=== PATIENT | female | born 1995 | race Asian ===

== ENCOUNTER 2019-05-01 11:30 | Outpatient (REF) | payer OTHER, SELFPAY ==
[2019-05-01 20:00] LABS: HCG Quant, Pregnancy 11783 mIU/mL (1-3)
== END 2019-05-01 11:50 ==
LOC: NCHCN 11:30
PROVIDERS: PCP Nurse Practitioner Family; Visit Provider Nurse Practitioner
DX: Z33.1 Pregnant state, incidental (principal)
CPT/HCPCS: 84702

== ENCOUNTER 2019-05-08 14:33 | Outpatient (CLI) | payer OTHER, SELFPAY | END 2019-05-08 14:53 | PROVIDERS: PCP Nurse Practitioner Family; Visit Provider Advanced Practice Midwife | DX: Z34.91 Encounter for supervision of normal pregnancy, unspecified, first trimester (principal); Z01.84 Encounter for antibody response examination | CPT/HCPCS: 36415; 86850; 86900; 86901; 84702 ==

== ENCOUNTER 2019-05-31 15:44 | Outpatient (CLI) | payer OTHER, SELFPAY ==
[2019-05-31 17:05] LABS: Abs Immature Grans 0.02 k/cumm (0.0-0.09); Absolute Basophil Count 0.02 k/cumm (0.0-0.2); Absolute Eosinophil Count 0.11 k/cumm (0.0-0.7); Absolute Lymphocyte Count 2.47 k/cumm (1.2-3.4); Absolute Monocyte Count 0.81 k/cumm (0.11-0.7); Basophils % 0.2; Eosinophils % 1.1; HCT 36.5 % (36.0-46.0); HGB 11.5 g/dL (12.0-15.5); Immature Grans % 0.2; Lymphocytes % 24.9; Mean Corp. HGB Concentration 31.5 g/dL (32.0-36.0); Mean Corpuscular Hemoglobin 25.4 pg (27.0-33.0); Mean Corpuscular Volume 80.8 fL (80-95); Monocytes % 8.2; Neutrophils % 65.4; Platelet Count 225 x1000/uL (130-400); RBC 4.52 m/cumm (4.00-5.20); White Blood Cell Count 9.93 k/cumm (4.4-10.8)
[2019-05-31 18:12] LABS: Diff Comment PLT Morph Reviewed; RBC Morphology Normal
[2019-06-04 08:17] LABS: HIV-1/2 Ag & Ab Screen Negative (Negative)
[2019-06-04 08:18] LABS: Hepatitis B Surface Ag Negative (Negative); Hepatitis C Ab w Rflx HCV PCR Negative (Negative); Rubella IgG Ab (UVM) Positive (See Note); Varicella IgG Antibody Positive (See Note)
[2019-06-04 10:06] LABS: Syphilis Total Ab w/Reflex Nonreactive (Nonreactive)
== END 2019-05-31 16:04 ==
PROVIDERS: PCP Nurse Practitioner Family; Visit Provider Advanced Practice Midwife
DX: Z34.91 Encounter for supervision of normal pregnancy, unspecified, first trimester (principal); Z11.59 Encounter for screening for other viral diseases; Z01.84 Encounter for antibody response examination; Z11.4 Encounter for screening for human immunodeficiency virus [HIV]
CPT/HCPCS: 36415; 86787; 86803; 86850; 86900; 86901; 87340; 87389; 87491; 87591; 85025; 86762; 86780

== ENCOUNTER 2019-05-31 16:25 | Outpatient (REF) | payer OTHER, MEDICAID, SELFPAY ==
--- NOTE | 2019-05-31 15:15 | PAPFT_PTH ---
PATIENT: Hoa Cox LOC: [facility] U#:[id number] AGE/SX: 24/F ROOM: RE05/31/[address]: Molly Bliss : 1995 BED: DIS: 05/31/2019 SPEC #: [id number] RECD: 05/31/19 17:24 STATUS: KAMI RESamuel #: [id number] JASPER: 05/31/19 15:[address]: Molly Bliss DEPT: [facility] Cytology RECD BY: Aixa Martin ENTERED: 05/31/19 17:25 SP TYPE: PAPFT OTHR DR: Maile Medel Tissues: 1 - CX/ENDOCX FOR PAP SMEARS Procedures: PAP THIN PREP/UVM Screening Comments: [id number]
[2019-05-31 19:14] LABS: *AMPHETAMINES SCREEN URINE Negative (Negative); *BARBITURATES SCREEN URINE Negative (Negative); *BENZODIAZEPINES SCREEN URINE Negative (Negative); Cannabinoids THC Negative (Negative); Cocaine Screen,Urine Negative (Negative); METHADONE URINE SCREEN Negative (Negative); OPIATES URINE SCREEN Negative (Negative)
[2019-05-31 19:25] LABS: Tricyclic Antidepressants Negative (Negative)
[2019-06-04 08:19] LABS: Chlamydia Result Negative (Negative); GC Result Negative (Negative)
[2019-06-04 08:29] LABS: Specimen Description Cervix
[2019-06-07 09:59] LABS: Buprenorphine Negative
== END 2019-05-31 16:45 ==
LOC: LBN 16:25
PROVIDERS: PCP Nurse Practitioner Family; Visit Provider Advanced Practice Midwife
DX: Z34.91 Encounter for supervision of normal pregnancy, unspecified, first trimester (principal); N89.8 Other specified noninflammatory disorders of vagina; Z12.4 Encounter for screening for malignant neoplasm of cervix; Z11.3 Encounter for screening for infections with a predominantly sexual mode of transmission
CPT/HCPCS: 80307; 87491; 87591; 88142; 87086; 87480; 87510; 87660

== ENCOUNTER 2019-07-26 02:46 | Outpatient (CLI) | payer OTHER, SELFPAY ==
--- NOTE | 2019-07-26 10:05 | DI.US_ITS ---
EXAM: US OB 2-3 TRIMESTER CLINICAL HISTORY: routine pnc, Z34.90 TECHNIQUE: Ultrasound performed using standard protocol. COMPARISON: No exams were available for comparison FINDINGS: Ob ultrasound was performed utilizing 2nd trimester protocol. There is a single fetus with bio metry consistent with gestational age 18 weeks 1 day and an EDC of 12/26/2019. Placenta is posterior with no evidence of placenta previa. There is visually a normal quantity of amniotic fluid. anomaly screen is within normal limits as per the attached checklist. cardiac activity observe d at a rate of 136 BPM.
== END 2019-07-26 03:06 ==
PROVIDERS: PCP Nurse Practitioner Family; Visit Provider Advanced Practice Midwife
DX: Z34.92 Encounter for supervision of normal pregnancy, unspecified, second trimester (principal); Z3A.18 18 weeks gestation of pregnancy
CPT/HCPCS: 76805

== ENCOUNTER 2019-10-04 08:02 | Outpatient (CLI) | payer OTHER, MEDICAID, SELFPAY ==
[2019-10-04 08:56] LABS: Glucose,1 Hr (Glucola) 154 mg/dL (80-140)
[2019-10-04 09:09] LABS: HCT 38.4 % (36.0-46.0); HGB 12.5 g/dL (12.0-15.5); Mean Corp. HGB Concentration 32.6 g/dL (32.0-36.0); Mean Corpuscular Hemoglobin 29.8 pg (27.0-33.0); Mean Corpuscular Volume 91.4 fL (80-95); Mean Platelet Volume 10.6 fL (8.0-11.0); Platelet Count 265 x1000/uL (130-400); RBC Distribution Width 13.6 % (11.7-14.6); White Blood Cell Count 12.48 k/cumm (4.4-10.8)
[2019-10-04 10:13] LABS: ALT 13 U/L (14-59); AST 12 U/L (15-37); Alkaline Phosphatase 77 U/L (46-116); Bilirubin, Direct 0.05 mg/dL (0.00-0.20); Bilirubin, Total 0.2 mg/dL (0.2-1.0)
== END 2019-10-04 08:22 ==
PROVIDERS: PCP Nurse Practitioner; Visit Provider Advanced Practice Midwife
DX: Z34.93 Encounter for supervision of normal pregnancy, unspecified, third trimester (principal)
CPT/HCPCS: 36415; 80076; 82950; 85027

== ENCOUNTER 2019-10-08 09:02 | Outpatient (CLI) | payer OTHER, MEDICAID, SELFPAY ==
[2019-10-08 11:12] LABS: Glucose 1 Hour 180 mg/dL
[2019-10-08 12:57] LABS: Glucose 3 Hour 117 mg/dL
== END 2019-10-08 09:22 ==
PROVIDERS: PCP Nurse Practitioner; Visit Provider Advanced Practice Midwife
DX: R73.09 Other abnormal glucose (principal); Z34.92 Encounter for supervision of normal pregnancy, unspecified, second trimester
CPT/HCPCS: 36415; 82951

== ENCOUNTER 2019-11-23 22:15 | Outpatient (CLI) | payer OTHER, MEDICAID, SELFPAY | END 2019-11-23 22:35 | PROVIDERS: PCP Nurse Practitioner; Referring Provider Advanced Practice Midwife; Visit Provider Advanced Practice Midwife | DX: O26.893 Other specified pregnancy related conditions, third trimester (principal); O36.8130 Decreased fetal movements, third trimester, not applicable or unspecified; Z3A.35 35 weeks gestation of pregnancy ==

== ENCOUNTER 2019-11-28 12:49 | Outpatient (REF) | payer OTHER, MEDICAID, SELFPAY ==
[2019-11-28 14:43] LABS: *AMPHETAMINES SCREEN URINE Negative (Negative); *BARBITURATES SCREEN URINE Negative (Negative); *BENZODIAZEPINES SCREEN URINE Negative (Negative); Cannabinoids THC Negative (Negative); Cocaine Screen,Urine Negative (Negative); METHADONE URINE SCREEN Negative (Negative); OPIATES URINE SCREEN Negative (Negative)
[2019-11-28 14:45] LABS: Tricyclic Antidepressants Negative (Negative)
[2019-12-08 05:32] LABS: Buprenorphine Negative; Norbuprenorphine Negative
== END 2019-11-28 13:09 ==
LOC: LBN 12:49
PROVIDERS: PCP Nurse Practitioner; Visit Provider Advanced Practice Midwife
DX: Z34.93 Encounter for supervision of normal pregnancy, unspecified, third trimester (principal); Z36.85 Encounter for antenatal screening for Streptococcus B
CPT/HCPCS: 80307; 87081

== ENCOUNTER 2019-12-06 03:48 | Outpatient (CLI) | payer OTHER, MEDICAID, SELFPAY ==
--- NOTE | 2019-12-06 07:00 | DI.US_ITS ---
EXAM: US OB ADARSH WEIGHT CLINICAL HISTORY: S<D at 36 wks,o26.843 TECHNIQUE: Ultrasound performed using standard protocol. COMPARISON: US US OB 2-3 TRIMESTER from 07/26/2019 FINDINGS: Ob ultrasound was performed utilizing 3rd trimester protocol biometry is consistent with gestat ional age of 36 weeks 2 days and an EDC of January 01, 2020. The estimated weight is 2887 grams which is at the 39th percentile for predicted gestational ag e. Placenta is posterior. There is visually mildly decreased quantity of amniotic fluid and the ADARSH is 7. Fetus is in cephalic presentation. cardiac rate 133 BPM. IMPRESSION: DATA REPOSITORY:
== END 2019-12-06 04:08 ==
PROVIDERS: PCP Nurse Practitioner; Visit Provider Advanced Practice Midwife
DX: O26.843 Uterine size-date discrepancy, third trimester (principal); Z3A.36 36 weeks gestation of pregnancy
CPT/HCPCS: 76816

== ENCOUNTER 2019-12-13 11:24 | Inpatient (IN) | payer OTHER, MEDICAID, SELFPAY ==
[2019-12-13 12:08] LABS: HCT 42.1 % (36.0-46.0); HGB 13.8 g/dL (12.0-15.5); Mean Corp. HGB Concentration 32.8 g/dL (32.0-36.0); Mean Corpuscular Hemoglobin 29.9 pg (27.0-33.0); Mean Corpuscular Volume 91.3 fL (80-95); Mean Platelet Volume 11.2 fL (8.0-11.0); Platelet Count 227 x1000/uL (130-400); RBC 4.61 m/cumm (4.00-5.20); RBC Distribution Width 13.7 % (11.7-14.6); White Blood Cell Count 9.11 k/cumm (4.4-10.8)
[2019-12-13 12:27] LABS: ROM Plus Positive
[2019-12-13] MEDS: miSOPROStol 25 MCG TAB PO ×3 (13:19→21:37)
[2019-12-13] MEDS: Penicillin G POT. 5,000,000 UNITS in Normal Saline 100 ML 200 UNITS IVPB (17:53)
[2019-12-13] MEDS: Normal Saline Flush 10 ML SYR IVP ×2 (21:00→22:15)
[2019-12-13] MEDS: Penicillin G POT. 3,000,000 UNITS in Normal Saline 50 ML 100 UNITS IVPB (22:15)
[2019-12-14] MEDS: Normal Saline Flush 10 ML SYR IVP ×2 (02:43→13:32)
[2019-12-14] MEDS: Penicillin G POT. 3,000,000 UNITS in Normal Saline 50 ML 100 UNITS IVPB ×5 (02:49→18:01)
[2019-12-14] MEDS: miSOPROStol 50 MCG TAB PO (08:51)
[2019-12-14 09:23] LABS: COVID-19 RT-PCR UVMMC Result Negative (Negative)
[2019-12-14] MEDS: Lactated Ringers 1,000 ML 125 ML IV (13:33)
[2019-12-14] MEDS: Oxytocin 10 UNITS/ML VIAL IM (21:05)
[2019-12-14] MEDS: Methylergonovine 0.2 MG/ML VIAL IM (21:15)
[2019-12-14] MEDS: Tranexamic Acid 1,000 MG/10 ML VIAL 1000 MG (21:20)
[2019-12-14] MEDS: Lidocaine 1% Multi-Dose 20 ML VIAL IJ (21:20)
--- NOTE | 2019-12-14 22:00 | HPE_ITS ---
Date of service: 12/14/19 Time of Service: 22:01 Assessment and Plan Assessment and plan (1) Cervical laceration: Status: Acute Qualifiers: Encounter type: initial encounter Qualified Code(s): S37.63XA - Laceration of uterus, initial encounter History of Present Illness History of Present Illness Chief Complaint: cervical laceration Narrative: Patient is 24-year-old female who underwent induction of labor for oligo hydramnios at term after uncomplicated . She had spontaneous vaginal delivery of a viable female infant this evening and was noted to have brisk bright red blood on the vagina. Careful inspection of the labia showed bilateral labial lacerations and copious amount of blood noted from the body of the cervix. Visualization was limited and as result the decision was made to proceed with the repair in the operating room Review of Systems Constitutional Constitutional: Reports fatigue Cardiovascular Cardiovascular: Reports system reviewed and no additional complaints, except as documented Respiratory Respiratory: Reports system reviewed and no additional complaints, except as documented Genitourinary Genitourinary: Reports other (Bleeding from cervix unable to visualize source.) Endocrine Endocrine: Reports fatigue [facility] Medical History (Updated 12/14/19 @ 22:05 by Carolin Muniz MD) Adopted (Acute) unknown family medical history Anxiety (Chronic) Cervical laceration (Acute) Depression (Chronic) Elevated glucose tolerance test (Acute) Surgical History (Updated 05/31/19 @ 14:35 by Molly Bliss CNM) H/O: knee surgery (Acute) Social History (Updated 10/04/19 @ 09:49 by Carolin Muniz MD) Smoking/Tobacco Use Status: Never Adopted: Yes Caregiver/Support person: Yes Household members: significant other Housing: house Number of Children: 0 Communication Needs: None Do you need help understanding health information?: Never Sexually active: Yes What is your relationship status?: living with partner Panel score (0-1 are the most socially isolated patients): 1 Additional Social history: Patient does not work. Jin works at [employer]. History History 2 Para 0 Hx # Term Pregnancies 0 Multiple births 0 Hx # Pregnancies 0 Ectopic pregnancies 0 AB induced 1 Hx Number of Living Children 0 AB spontaneous 0 Meds Home Medications and Allergies Home Medications Medication Instructions Recorded Confirmed Type vitamin with calcium 1 tab PO DAILY #30 tab 05/31/19 12/13/19 Rx no.72-iron 27 mg-folic acid 1 mg tablet Allergies Allergy/AdvReac Type Severity Reaction Status Date / Time mushroom Allergy Severe Throat Verified 12/06/19 13:05 swelling Exam Const General: comfortable Nutritional Appearance: average body habitus Orientation: alert, awake and oriented x3 Chest Chest: normal inspection of the chest Resp Effort & Inspection: normal respiratory effort Auscultation: clear to auscultation bilaterally Cardio Rate: regular rate Rhythm: regular rhythm GI Inspection: normal to inspection External Female Exam: other (Bilateral labial lacerations) Speculum Exam - Cervix: other (Unable to visualize with any accuracy secondary to blood) OB/External & Speculum: bleeding Results Labs Result diagrams: 12/13/19 11:55 Labs: Laboratory Results - last 24 hr 12/13/19 12:20 COVID-19 PCR Negative Nasopharyn COVID-19 PCR Not Applicable Ref Test Perform Site [facility] lab COVID-19 Screening In the past 14 days, have you traveled outside of [place] or [place]?: NO
[2019-12-14] MEDS: Bupivacaine 0.25% Pres-Free 30 ML VIAL (23:13)
[2019-12-15] MEDS: Lactated Ringers 1,000 ML 125 ML IV (00:11)
--- NOTE | 2019-12-15 00:18 | W.PM.OP ---
Date of service: 12/15/19 Time of Service: 00:18 Operative Note Operative Note DATE OF PROCEDURE: 12/15/19 PRE-OP DIAGNOSIS: cervical laceration, hemorrhage POST-OP DIAGNOSIS: same PROCEDURE: Repair of cervical laceration bilateral labial lacerations and left vaginal sidewall sulcus tear SURGEON: Carolin Muniz CRIMINAL INVESTIGATOR: Arabella Castro ANESTHESIA: MAC ESTIMATED BLOOD LOSS: 400 PATHOLOGY: none sent COMPLICATIONS: None Patient was transported to: floor Patient's condition: stable Indications: G1, P1 female who sustained a cervical laceration during a spontaneous vaginal delivery. Laceration could not be repaired in the delivery room and she was transported recovery area for benefit of anesthesia and visualization of the site. Findings: Patulous cervix with a defect at the 6 o'clock position of the left lateral sulcus tear bilateral labial tears the perineum was intact. Procedure Description: Patient was taken to the operating room she placed in the dorsal supine position monitored anesthesia care was administered without difficulty she was then placed in [facility] with SCDs in place. A weighted vaginal speculum was placed in the vagina and a curved [place] retractor was used to retract the bladder away from the operative field. Two forceps were used to grasp cervix and sequentially performed careful inspection of the anterior and posterior lips of the cervix. The posterior lip of the cervix was sutured with a running lock suture extending from the 4:00 to 8 o'clock position which allowed for hemostasis. 2 interrupted sutures were used on the anterior portion of the cervix at the 1 and 11:00 positions respectively. The left lateral vaginal wall was inspected and the sulcus tear closed with running suture of 0 Vicryl. A running suture of 3-0 Vicryl was used to close the space beneath the left labia and a subcuticular closure of 3-0 Vicryl was used to reapproximate the labial epithelium to the vaginal epithelium. Similar technique was carried out on the right labia with satisfactory cosmetic repair. At the completion of the procedure both labia left sulcus tear and cervical repair were hemostatic. Melendez cath was placed to gravity drainage the patient was placed in the dorsal supine position awakened from anesthesia and transported to center in satisfactory condition. All sponge lap needle counts correct x2
[2019-12-15] MEDS: Lactated Ringers 1,000 ML 150 ML IV ×3 (00:45→13:33)
[2019-12-15] MEDS: Normal Saline Flush 10 ML SYR IVP ×3 (00:45→20:00)
[2019-12-15] MEDS: Ketorolac 30 MG/ML VIAL IVP ×4 (00:45→20:00)
[2019-12-15 00:55] LABS: HCT 35.3 % (36.0-46.0); HGB 11.7 g/dL (12.0-15.5)
[2019-12-15] MEDS: Docusate Sodium 100 MG CAP PO (08:34)
[2019-12-15] MEDS: Hamamelis Leaf/Glycerin 100 EACH BOX PR ×2 (08:34→15:32)
--- NOTE | 2019-12-15 10:46 | W.PM.PROGNOT ---
Date of Service Date of service: 12/15/19 Time of Service: 10:46 Assessment and Plan Assessment and plan (1) Cervical laceration: Status: Acute Assessment and plan: Initial postop check: Patient is sleeping and initial exam performed by RN caring for the patient. I will follow-up later today. CBC is due at noon today. Continue assisting patient with activities of daily living remove Melendez catheter when she is able to ambulate. Qualifiers: Encounter type: initial encounter Qualified Code(s): S37.63XA - Laceration of uterus, initial encounter Subjective Subjective Patient reports: other Interval history since last seen: Patient currently asleep I received report from the RN caring for her. Currently no perineal pain. She has a Melendez catheter in place and had slept most of the night. Exam Const General: other (Sleeping. Pale) Nutritional Appearance: average body habitus Resp Effort & Inspection: normal respiratory effort External Female Exam: external swelling (Bilateral lateral edema of labia minor and majora), ecchymosis (None) and other Speculum Exam - Vagina: other (Deferred) Objective Objective Clinical Data: Abnormal lab results 12/15/19 Range/Units 00:45 Hgb 11.7 L D (12.0-15.5) g/dL Hct 35.3 L (36.0-46.0) % Intake & Output 12/14/19 12/14/19 12/15/19 11:59 23:59 11:59 Intake Total 150 / 200 50 / 200 1897.5 / 1897.5 Output Total 400 / 400 Balance 150 / 200 50 / 200 1497.5 / 1497.5 Intake: IV 150 / 200 50 / 200 1897.5 / 1897.5 Output: Estimated Blood Loss 400 / 400 Other: Urine Color Yellow Urine Appearance Clear Laboratory Results WBC 9.11 k/cumm (4.4-10.8) 12/13/19 11:55 RBC 4.61 m/cumm (4.00-5.20) 12/13/19 11:55 Hgb 11.7 g/dL (12.0-15.5) L D 12/15/19 00:45 Hct 35.3 % (36.0-46.0) L 12/15/19 00:45 MCV 91.3 fL (80-95) 12/13/19 11:55 MCH 29.9 pg (27.0-33.0) 12/13/19 11:55 MCHC 32.8 g/dL (32.0-36.0) 12/13/19 11:55 RDW 13.7 % (11.7-14.6) 12/13/19 11:55 Plt Count 227 x1000/uL (130-400) 12/13/19 11:55 MPV 11.2 fL (8.0-11.0) H 12/13/19 11:55 Membranes Rupture Positive 12/13/19 11:17 COVID-19 PCR Negative (Negative) 12/13/19 12:20 Nasopharyn COVID-19 PCR Not Applicable 12/13/19 12:20 Ref Test Perform Site [facility] lab 12/13/19 12:20 Patient ABO/Rh AB Positive 12/13/19 11:55 Antibody Screen Negative 12/13/19 11:55
[2019-12-15 12:36] LABS: HCT 28.5 % (36.0-46.0); HGB 9.3 g/dL (12.0-15.5); Mean Corp. HGB Concentration 32.6 g/dL (32.0-36.0); Mean Corpuscular Hemoglobin 30.3 pg (27.0-33.0); Mean Corpuscular Volume 92.8 fL (80-95); Mean Platelet Volume 10.8 fL (8.0-11.0); Platelet Count 268 x1000/uL (130-400); RBC 3.07 m/cumm (4.00-5.20); RBC Distribution Width 13.4 % (11.7-14.6); White Blood Cell Count 17.68 k/cumm (4.4-10.8)
--- NOTE | 2019-12-16 15:25 | PGE_ITS ---
Date of Service Date of service: 12/16/19 Time of Service: 11:30 Assessment and Plan Assessment and plan (1) Encounter for insertion subdermal contraceptive: Status: Acute Assessment and plan: Nexplanon insertion site marked with pen and left upper arm cleansed with betadine and alcohol. Approximately 0.5 cc of local anesthetic injected at insertion site and deeply along insertion path. Nexplanon inserted without difficulty and patient tolerated the procedure well. Pressure dressing applied and patient was instructed to keep a bandaid in place for three days and replace the bandaid if the dressing becomes wet. The patient and I identified the device after the procedure. Signs of infection were reviewed. Subjective Subjective Interval history since last seen: Hoa desires nexplanon for contraception. She has had a nexplanon in the past. permit signed. Procedure explained. Objective Objective Clinical Data: Vital Signs Pain Level 5 12/15/19 13:20 Intake & Output 12/15/19 12/16/19 12/16/19 23:59 11:59 23:59 Intake Total 1967.5 / 3865.0 Balance 1967.5 / 3465.0 Intake: IV 1966. / 3865.0 Laboratory Results WBC 17.68 k/cumm (4.4-10.8) H 12/15/19 12:28 RBC 3.07 m/cumm (4.00-5.20) L 12/15/19 12:28 Hgb 9.3 g/dL (12.0-15.5) L D 12/15/19 12:28 Hct 28.5 % (36.0-46.0) L 12/15/19 12:28 MCV 92.8 fL (80-95) 12/15/19 12:28 MCH 30.3 pg (27.0-33.0) 12/15/19 12:28 MCHC 32.6 g/dL (32.0-36.0) 12/15/19 12:28 RDW 13.4 % (11.7-14.6) 12/15/19 12:28 Plt Count 268 x1000/uL (130-400) 12/15/19 12:28 MPV 10.8 fL (8.0-11.0) 12/15/19 12:28 Membranes Rupture Positive 12/13/19 11:17 COVID-19 PCR Negative (Negative) 12/13/19 12:20 Nasopharyn COVID-19 PCR Not Applicable 12/13/19 12:20 Ref Test Perform Site [facility] lab 12/13/19 12:20 Patient ABO/Rh AB Positive 12/13/19 11:55 Antibody Screen Negative 12/13/19 11:55 Procedures Other Procedure Description/Findings: Nexplanon insertion for contraception
== END 2019-12-16 12:50 | disposition home or self-care (01) | DRG 768 ==
LOC: OBS 12:15
PROVIDERS: Obstetrics & Gynecology Gynecology; Admitting Provider Advanced Practice Midwife; PCP Nurse Practitioner; Visit Provider Advanced Practice Midwife
PROC: (CPT 57335; principal; 2019-12-14 22:20)
DX: O71.3 Obstetric laceration of cervix (principal); Z37.0 Single live birth; O71.4 Obstetric high vaginal laceration alone; O72.1 Other immediate postpartum hemorrhage; D62 Acute posthemorrhagic anemia; O71.82 Other specified trauma to perineum and vulva; O99.824 Streptococcus B carrier state complicating childbirth; Z3A.38 38 weeks gestation of pregnancy; O42.02 Full-term premature rupture of membranes, onset of labor within 24 hours of rupture; O99.62 Diseases of the digestive system complicating childbirth; K59.00 Constipation, unspecified; Z30.017 Encounter for initial prescription of implantable subdermal contraceptive; O90.81 Anemia of the puerperium
CPT/HCPCS: 57720; 59300; 11981; 36415; 84112; 85027; 86850; 86900; 86901; 99221; 99232; NC; U0003; 59025; 85014; 85018; J1885; J2001; J2210; J2405; J2540; J2590; J2704; J3490

== ENCOUNTER 2021-03-16 15:20 | Outpatient (CLI) | payer OTHER, MEDICAID, SELFPAY ==
[2021-03-16 15:27] LABS: Kit/Specimen SENT
[2021-03-16 15:34] LABS: Abs Immature Grans 0.02 10^3/uL (0.0-0.06); Absolute Basophil Count 0.04 10^3/uL (0.0-0.2); Absolute Eosinophil Count 0.21 10^3/uL (0.0-0.7); Absolute Lymphocyte Count 2.52 10^3/uL (1.2-3.4); Absolute Monocyte Count 0.78 10^3/uL (0.1-0.8); Absolute Neutrophil Count 6.02 10^3/uL (1.2-6.7); Basophils % 0.4; Eosinophils % 2.2; HCT 38.9 % (36.0-46.0); HGB 12.5 g/dL (11.2-15.7); Immature Grans % 0.2; Lymphocytes % 26.3; MCH 27.7 pg (27.0-33.0); MCHC 32.1 % (32.0-36.0); MCV 86.3 fL (80-95); MPV 11.8 fL (8.0-11.0); Monocytes % 8.1; Neutrophils % 62.8; Nucleated RBC 0 %; Platelet Count 272 10^3/uL (130-400); RBC 4.51 10^6/uL (3.93-5.22); RDW-SD 47.5 fL; WBC 9.59 10^3/uL (4.4-10.8)
[2021-03-16 20:13] LABS: *AMPHETAMINES SCREEN URINE Negative (Negative); *BARBITURATES SCREEN URINE Negative (Negative); *BENZODIAZEPINES SCREEN URINE Negative (Negative); Cannabinoids THC Negative (Negative); Cocaine Screen,Urine Negative (Negative); METHADONE URINE SCREEN Negative (Negative); OPIATES URINE SCREEN Negative (Negative)
[2021-03-16 20:15] LABS: Tricyclic Antidepressants Negative (Negative)
[2021-03-18 09:43] LABS: Hepatitis B Surface Ag Negative (Negative)
[2021-03-18 10:05] LABS: Hepatitis C Ab w Rflx HCV PCR Negative (Negative)
[2021-03-18 10:16] LABS: Varicella IgG Antibody Positive (See Note)
[2021-03-18 10:18] LABS: Rubella IgG Ab (UVM) Positive (See Note)
[2021-03-18 10:25] LABS: HIV-1/2 Ag & Ab Screen Negative (Negative)
[2021-03-18 15:21] LABS: Chlamydia Result Negative (Negative); GC Result Negative (Negative)
[2021-03-19 10:51] LABS: Syphilis Total Ab w/Reflex Nonreactive (Nonreactive)
[2021-03-23 09:50] LABS: Buprenorphine Negative ng/mL (Cutoff: 5.0); Norbuprenorphine Negative ng/mL (Cutoff: 2.5)
== END 2021-03-16 15:21 | disposition home or self-care (01) ==
PROVIDERS: PCP Nurse Practitioner; Visit Provider Advanced Practice Midwife
DX: Z34.92 Encounter for supervision of normal pregnancy, unspecified, second trimester (principal); Z11.4 Encounter for screening for human immunodeficiency virus [HIV]; Z11.3 Encounter for screening for infections with a predominantly sexual mode of transmission; Z11.59 Encounter for screening for other viral diseases; Z01.84 Encounter for antibody response examination; Z3A.14 14 weeks gestation of pregnancy
CPT/HCPCS: 36415; 80307; 86787; 86803; 86850; 86900; 86901; 87077; 87340; 87389; 87491; 87591; 85025; 86762; 86780; 87086; 87186; 87480; 87510; 87660

== ENCOUNTER 2021-03-31 14:14 | Emergency (ER) | payer OTHER, MEDICAID, SELFPAY ==
[2021-03-31] VITALS (26 sets, daily range): BP systolic 103–123; BP diastolic 67–87; PULSE 62–97; RESP 9–19; TEMP 36.5–36.6; O2SAT 97–100
--- NOTE | 2021-03-31 14:30 | RT.EKG_ITS ---
APPROVED REPORT Exam: Resting ECG Reason for Exam: Syncope Patient Location: E HR:74 bpm ECG Measurements Heart Rate 74 AXIS VA 143 P 45 QRSd 79 QRS 33 QT 396 T 17 QTc 439 Conclusion Sinus rhythm...normal P axis, V-rate 60- 99
--- NOTE | 2021-03-31 14:38 | DI.US_ITS ---
Exam(s) US OB 2-3 TRIMESTER W MOD EXAM: US OB 2-3 TRIMESTER W MOD CLINICAL HISTORY: Abd pain, . TECHNIQUE: Transabdominal obstetrical ultrasound was performed. COMPARISON: US US OB 1ST TRIMESTER from 03/09/2021 FINDINGS: There is a single viable intrauterine gestation with cardiac activity identified.-155 BPM There is low normal amount of amniotic fluid with ADARSH of 9.5 cm Placenta is anterior 1-2. No obvious placental abruption. No obvious placenta previa. Dating parameters were not performed. IMPRESSION: 1. Single viable intrauterine gestation. Normal amount of amniotic fluid 2. Placenta is anterior. No obvious abruption. No obvious placenta previa. DATA REPOSITORY:
--- NOTE | 2021-03-31 14:42 | W.ED.GENAD ---
Discharge Plan Disposition Patient Disposition: HOME Condition: Stable Discharge Details Clinical Impression: Syncope Primary Care Provider: Angela Jhaveri ED Provider: James Babb Home Meds and New Rx's Prescriptions: Continued prenat.vits,junior,[id number] Tablet 1 tab PO DAILY RF: 0 Discharge Instructions Instructions: Syncope (ED) Additional Instructions: Please be sure to have adequate fluid intake to avoid dehydration. Watch for new or worsening symptoms and return to the ER for any concerns. We spoke with the on-call RECORD PRESS OPERATOR provider, their office should be reaching out to you tomorrow to discuss setting up outpatient reevaluation. Discharge Data Discharge Date/Time-TO BE ENTERED AT DEPARTURE: 03/31/21 17:58 Medical Decision Making <Rylie Costello - Last Filed: 04/01/21 20:07> 25-year-old female presents to the ER with chief complaint of possible syncopal versus seizure-like activity prior to arrival. Patient was sitting down in bed up and walked across the room and woke up on the floor. Mother who was in the other room heard a thump came into the room and noticed seizure-like activity. This was a very brief episode. Patient did hit the front of her chin and is complaining of a slight frontal headache, all over body pain and some sharp stabbing periumbilical abdominal tenderness which radiates up into her epigastrium. She denies any nausea vomiting. Denies any fever vaginal discharge or bleeding. Patient is 17 weeks 2 para 1 has had care. On initial exam patient is slightly confused awake alert. 1445: Spoke with Dr. Leija RECORD PRESS OPERATOR regarding patient case and details. I did request information if patient were to have another seizure-like activity if lorazepam or diazepam the appropriate she does confirm that this is appropriate for the patient. At this time labs ordered, EKG, orthostatic vital signs and ultrasound which Dr. Renee reports that this is appropriate. Will call Dr. Chong back if any abnormalities found. Preliminary US result, WNL. No evidence of orthostatic hypotension. Care is to be handed off to oncoming provider James Babb pending official ultrasound results and patient reevaluation and disposition. Patient case in detail discussed with him he verbalizes understanding. Patient is in the hemodynamic stable condition at the time of this dictation. <GEORGE Moreira - Last Filed: 03/31/21 17:54> I assumed care of this 25-year-old female from my colleague JOZEF Costello, please see her initial HPI and examination. At time of signout awaiting ultrasound and urinalysis. Patient was given oral potassium and given her slightly elevated TSH, a T4 was also elevated. I personally evaluated the patient. She is awake, alert, no acute distress. She reports a mild dull headache, slightly worse in the posterior aspect that is improving with the p.o. Tylenol given. She denies visual changes, neck pain, chest pain, shortness of breath, abdominal pain, nausea, vomiting, vaginal bleeding or discharge, numbness, tingling, weakness. She does tell me that she has had at least 3 previous similar syncopal episodes in the past. She at 1 point states that she was seen by a neurologist and had an EEG, never formally diagnosed with seizures, epilepsy, etc. Never on antiepileptics. Based upon her story this certainly does appear to the more suspicious for syncopal episode versus seizure-like activity. She does not bite her tongue nor she incontinent of urine. Ultrasound resulted as unremarkable. Please see official report to radiology. Free T4 1.04, urinalysis greater than 160 ketones, trace leukoesterase but negative for nitrates, many epithelials, no clear infection. Patient did receive IV fluid. Patient is stating that she is overall feeling better, she was able to tolerate p.o. intake without difficulty, and is ambulatory without feeling near syncopal. She has no additional questions or concerns and is comfortable with discharge at this time. I did reach back out to Dr. Leija and made her aware of the rest of the work-up. She believes the patient can be safely discharged and they will be reaching out to her tomorrow to discuss outpatient reevaluation. Strict discharge and return precautions provided. We discussed the importance of staying well-hydrated. Patient has no additional questions or concerns upon discharge. We did discuss that if she does have additional episodes that she may require a further work-up that could include neurology consultation, EEG, even potential head CT but would like to avoid any radiation during if at all possible. Medical Records Medical records reviewed: Yes I reviewed the patient's medical records. Imaging Data Radiologic Study: Attestation: I personally reviewed and interpreted this imaging study as follows: Imaging: Ultrasound Radiologist's impression: Exam(s) US OB 2-3 TRIMESTER W MOD EXAM: US OB 2-3 TRIMESTER W MOD CLINICAL HISTORY: Abd pain, . TECHNIQUE: Transabdominal obstetrical ultrasound was performed. COMPARISON: US US OB 1ST TRIMESTER from 03/09/2021 FINDINGS: There is a single viable intrauterine gestation with cardiac activity identified.-155 BPM There is low normal amount of amniotic fluid with ADARSH of 9.5 cm Placenta is anterior 1-2. No obvious placental abruption. No obvious placenta previa. Dating parameters were not performed. IMPRESSION: 1. Single viable intrauterine gestation. Normal amount of amniotic fluid 2. Placenta is anterior. No obvious abruption. No obvious placenta previa. Lab Data Lab results reviewed: Yes I reviewed the patient's lab results. Labs: Laboratory Tests Range/Units 03/31/21 03/31/21 03/31/21 15:00 15:00 15:00 WBC (4.4-10.8) 10^3/uL 7.79 RBC (3.93-5.22) 10^6/uL 4.59 Hgb (11.2-15.7) g/dL 12.9 Hct (36.0-46.0) % 39.8 MCV (80-95) fL 86.7 MCH (27.0-33.0) pg 28.1 MCHC (32.0-36.0) % 32.4 RDW (11.7-14.6) % 15.4 H Plt Count (130-400) 10^3/uL 254 MPV (8.0-11.0) fL 11.6 H Immature Gran % 0.3 Neutrophils % 59.8 Lymphocytes % 28.2 Monocytes % 8.2 Eosinophils % 3.0 Basophils % 0.5 Nucleated RBC % % 0 Absolute Neutrophils (1.2-6.7) 10^3/uL 4.66 Absolute Lymphocytes (1.2-3.4) 10^3/uL 2.20 Absolute Monocytes (0.1-0.8) 10^3/uL 0.64 Absolute Eosinophils (0.0-0.7) 10^3/uL 0.23 Absolute Basophils (0.0-0.2) 10^3/uL 0.04 Sodium (136-145) mmol/L 139 Potassium (3.5-5.1) mmol/L 3.3 L Chloride (98-107) mmol/L 104 Carbon Dioxide (21.0-32.0) mmol/L 25.4 Anion Gap (3-11) mmol/L 9.6 BUN (7-18) mg/dL 7 Creatinine (0.55-1.02) mg/dL 0.7 Estimated GFR/1.73 m2 (mL/min/1.73m2) >= 60.00 Glucose (74-106) mg/dL 81 Calcium (8.5-10.1) mg/dL 8.7 Magnesium (1.8-2.4) mg/dL 2.0 Total Bilirubin (0.2-1.0) mg/dL 0.2 AST (15-37) U/L 10 L ALT (14-59) U/L 15 Alkaline Phosphatase (46-116) U/L 54 Total Protein (6.4-8.2) g/dL 7.5 Albumin (3.4-5.0) g/dL 3.4 TSH (0.36-3.74) uIU/mL 4.92 H Free T4 (0.76-1.46) ng/dL Urine Color (Yellow) Urine Clarity (Clear) Urine pH (5-8) Ur Specific [place] (1.005-1.025) Urine Protein (Negative) mg/dL Urine Ketones (Negative) mg/dL Urine Blood (Negative) Urine Nitrite (Negative) Urine Bilirubin (Negative) Urine Urobilinogen (Up TO 0.2) EU/dL Ur Leukocyte Esterase (Negative) Urine RBC (0-2) HPF Urine WBC (0-5) HPF Ur Epithelial Cells (Negative) HPF Urine Crystals (Negative) HPF Urine Bacteria (Negative) HPF Urine Casts (Negative) LPF Urine Mucus (Negative) Ur Culture Indicated? Urine Glucose (Negative) mg/dL Range/Units 03/31/21 03/31/21 15:00 17:20 WBC (4.4-10.8) 10^3/uL RBC (3.93-5.22) 10^6/uL Hgb (11.2-15.7) g/dL Hct (36.0-46.0) % MCV (80-95) fL MCH (27.0-33.0) pg MCHC (32.0-36.0) % RDW (11.7-14.6) % Plt Count (130-400) 10^3/uL MPV (8.0-11.0) fL Immature Gran % Neutrophils % Lymphocytes % Monocytes % Eosinophils % Basophils % Nucleated RBC % % Absolute Neutrophils (1.2-6.7) 10^3/uL Absolute Lymphocytes (1.2-3.4) 10^3/uL Absolute Monocytes (0.1-0.8) 10^3/uL Absolute Eosinophils (0.0-0.7) 10^3/uL Absolute Basophils (0.0-0.2) 10^3/uL Sodium (136-145) mmol/L Potassium (3.5-5.1) mmol/L Chloride (98-107) mmol/L Carbon Dioxide (21.0-32.0) mmol/L Anion Gap (3-11) mmol/L BUN (7-18) mg/dL Creatinine (0.55-1.02) mg/dL Estimated GFR/1.73 m2 (mL/min/1.73m2) Glucose (74-106) mg/dL Calcium (8.5-10.1) mg/dL Magnesium (1.8-2.4) mg/dL Total Bilirubin (0.2-1.0) mg/dL AST (15-37) U/L ALT (14-59) U/L Alkaline Phosphatase (46-116) U/L Total Protein (6.4-8.2) g/dL Albumin (3.4-5.0) g/dL TSH (0.36-3.74) uIU/mL Free T4 (0.76-1.46) ng/dL 1.04 Urine Color (Yellow) Yellow Urine Clarity (Clear) Clear Urine pH (5-8) 7.0 Ur Specific [place] (1.005-1.025) 1.025 Urine Protein (Negative) mg/dL Negative Urine Ketones (Negative) mg/dL >=160 H Urine Blood (Negative) Negative Urine Nitrite (Negative) Negative Urine Bilirubin (Negative) Negative Urine Urobilinogen (Up TO 0.2) EU/dL 0.2 Ur Leukocyte Esterase (Negative) Trace H Urine RBC (0-2) HPF 0-2 Urine WBC (0-5) HPF 3-5 Ur Epithelial Cells (Negative) HPF Many Urine Crystals (Negative) HPF Negative Urine Bacteria (Negative) HPF Moderate Urine Casts (Negative) LPF 0-2 Hyaline Urine Mucus (Negative) Heavy Ur Culture Indicated? No/Sq. Contamination Urine Glucose (Negative) mg/dL Negative HPI <Rylie Costello - Last Filed: 04/01/21 20:07> General Mode of arrival: ambulatory. Date/Time Provider Initiated Documentation: 03/31/21 14:19. Limitations to Documentation: no limitations. Information obtained by: patient, RN notes reviewed and old records reviewed. HPI Narrative: 25-year-old female presents to the ER with chief complaint of possible syncopal versus seizure-like activity prior to arrival. Patient was sitting down in bed up and walked across the room and woke up on the floor. Mother who was in the other room heard a thump came into the room and noticed seizure-like activity. This was a very brief episode. Patient did hit the front of her chin and is complaining of a slight frontal headache, all over body pain and some sharp stabbing periumbilical abdominal tenderness which radiates up into her epigastrium. She denies any nausea vomiting. Denies any fever vaginal discharge or bleeding. Patient is 17 weeks 2 para 1 has had care. On initial exam patient is slightly confused awake alert. Related Data Home Medications Medication Instructions Recorded Confirmed prenat.vits,junior,[id number] 1 tab PO DAILY 03/02/21 03/31/21 Allergies Allergy/AdvReac Type Severity Reaction Status Date / Time mushroom Allergy Severe Throat Verified 03/31/21 15:00 swelling General Stated Complaint: Dizzy/Sync ENEDELIA: 2 Review of Systems <Rylie Costello - Last Filed: 04/01/21 20:07> All systems reviewed & are unremarkable except as noted in HPI and below Constitutional Constitutional: Reports headache(s) ENT Ears, Nose, Mouth, and Throat: Reports headache(s) Cardiovascular Cardiovascular: Reports syncope Neurologic Neurologic: Reports syncope, Reports headache(s) and Reports seizure-like activity FOR[facility]LY [facility], [facility] <Rylie Costello - Last Filed: 04/01/21 20:07> Medical History (Updated 03/31/21 @ 17:53 by GEORGE Moreira) Adopted unknown family medical history Anxiety Cervical laceration 12/14/2019. Repaired in the OR total EBL approximately 1500 cc Contraceptive management 04/2020. OCPs started. Nexplanon reAUB.sulted in Date of last menstrual period (LMP) unknown Depression Dysfunctional uterine bleeding Late care Positive test Surgical History H/O: knee surgery Social History Smoking/Tobacco Use Status: Never Second Hand Exposure: No Smoking risk assessment performed?: Yes Alcohol Intake: never Drug use: Never Substance use type: does not use Adopted: Yes Caregiver/Support person: Yes Household members: significant other, children and other Details: dann Adbi and daughter Flower live with her parents. Housing: house Number of Children: 1 Communication Needs: None Do you need help understanding health information?: Never Sexually active: Yes What is your relationship status?: living with partner Panel score (0-1 are the most socially isolated patients): 1 Do you feel safe at home: Yes Do you feel safe in your relationship?: Yes Additional Social history: Patient does not work. Jin works at [employer]. History History 2 Para 0 Hx # Term Pregnancies 1 Multiple births 0 Hx # Pregnancies 0 Ectopic pregnancies 0 AB induced 0 Hx Number of Living Children 1 AB spontaneous 0 Past Pregnancies Del. Date GA/Weeks # Outcome Route Wgt Sex Labor Lgth Anesthesia Location Prov Complic 12/14/19 38 No Successful vaginal 2834.952 g Female 4hrs 21 min VIRGIL Lynn other Delivery Date: 12/14/19 Induced due to Oligohydramnios, periurethral ,labial, and upper left vag. sulcus lacerations, repair in OR for cervical tear. Kiara. Chan. Carolin Muniz Exam <Rylie Costello - Last Filed: 04/01/21 20:07> Narrative Exam Narrative: Constitutional: Alert and oriented x3. Appears stated age. Normal body habitus. Head: Normocephalic, no trauma. Eyes: Pupils PERRLA, Red reflex noted, EOM's intact. Eyelids symmetrical without lesions, discharge, or swelling. ENT: Bilateral TM's WNL, External ear normal to inspection, no mastoid TTP, swelling, or erythema, Nasal turbinates WNL, no nasal discharge. Normal dentition, Posterior pharynx WNL, no exudate. Chest: RRR, Normal S1, S2, distal pulses intact. Resp: Lungs clear to auscultation bilaterally, no wheezes, rales, or rhonchi. Abdomen: Consistent with 17 weeks gestation. Nontender to palpation. Musculoskeletal: Normal gait, 5/5 strength to all four extremities. Skin: No suspicious rashes or lesions. Capillary refill less than 2 sec. Neurologic: Cranial nerves II-XII intact. Alert and oriented x 3. No focal neuro deficits. Hematologic/Lymphatic: No ecchymosis, no lymphadenopathy. Course <Rylie Costello - Last Filed: 04/01/21 20:07> Vital Signs Vital signs: Vital Signs Temperature 36.6 C 03/31/21 14:22 Pulse 97 H 03/31/21 14:22 Respiratory Rate 16 03/31/21 14:22 Blood Pressure 123/77 03/31/21 14:22 Pulse Oximetry 97 03/31/21 14:22 Temperature 36.6 C 03/31/21 14:22 Pulse 97 H 03/31/21 14:22 Respiratory Rate 16 03/31/21 14:22 Blood Pressure 123/77 03/31/21 14:22 Blood Pressure Position Sitting 03/31/21 14:22 Pulse Oximetry 97 03/31/21 14:22 Oxygen Delivery Method Room Air 03/31/21 14:22 Oxygen Flow Rate 0 03/31/21 14:22 Pain Level 10 03/31/21 14:22 Sign Out <Rylie Costello - Last Filed: 04/01/21 20:07> Sign Out Data: Sign Out Comment: Pending US results, labs and most likely Discharge. 17 weeks , syncopal episode versus seizure-like activity. Last updated by Rylie Costello at 03/31/21 15:43
[2021-03-31] MEDS: Normal Saline 1,000 ML 1000 ML IV (15:05)
[2021-03-31 15:14] LABS: Abs Immature Grans 0.02 10^3/uL (0.0-0.06); Absolute Basophil Count 0.04 10^3/uL (0.0-0.2); Absolute Eosinophil Count 0.23 10^3/uL (0.0-0.7); Absolute Monocyte Count 0.64 10^3/uL (0.1-0.8); Absolute Neutrophil Count 4.66 10^3/uL (1.2-6.7); Basophils % 0.5; HCT 39.8 % (36.0-46.0); HGB 12.9 g/dL (11.2-15.7); Immature Grans % 0.3; Lymphocytes % 28.2; MCH 28.1 pg (27.0-33.0); MCHC 32.4 % (32.0-36.0); MCV 86.7 fL (80-95); MPV 11.6 fL (8.0-11.0); Monocytes % 8.2; Neutrophils % 59.8; Nucleated RBC 0 %; Platelet Count 254 10^3/uL (130-400); RBC 4.59 10^6/uL (3.93-5.22); RDW 15.4 % (11.7-14.6); RDW-SD 48.8 fL; WBC 7.79 10^3/uL (4.4-10.8)
[2021-03-31 15:35] LABS: ALT 15 U/L (14-59); AST 10 U/L (15-37); Albumin 3.4 g/dL (3.4-5.0); Alkaline Phosphatase 54 U/L (46-116); Anion Gap 9.6 mmol/L (3-11); BUN 7 mg/dL (7-18); Bilirubin, Total 0.2 mg/dL (0.2-1.0); CO2 25.4 mmol/L (21.0-32.0); CREATININE 0.7 mg/dL (0.55-1.02); Calcium 8.7 mg/dL (8.5-10.1); Chloride 104 mmol/L (98-107); Glucose 81 mg/dL (74-106); Potassium 3.3 mmol/L (3.5-5.1); Sodium 139 mmol/L (136-145); TSH 4.92 uIU/mL (0.36-3.74); Total Protein 7.5 g/dL (6.4-8.2)
[2021-03-31] MEDS: Potassium Chloride 20 MEQ TABCR PO (16:05)
[2021-03-31] MEDS: Acetaminophen 500 MG TAB PO (16:05)
[2021-03-31 16:32] LABS: FREE T4 1.04 ng/dL (0.76-1.46)
--- NOTE | 2021-03-31 16:55 | NUR.NOTE ---
Patient ambulated in room. Denies dizziness. Drinking glass of juice. in room.
[2021-03-31 17:31] LABS: Bilirubin Negative (Negative); Blood Negative (Negative); Clarity Clear (Clear); Glucose Negative (Negative); Ketones >=160 mg/dL (Negative); Leukocyte Esterase Trace (Negative); Nitrite Negative (Negative); Specific Gravity 1.025 (1.005-1.025); Urobilinogen 0.2 EU/dL (Up TO 0.2)
[2021-03-31 17:45] LABS: Bacteria Moderate HPF (Negative); C & S Indicated? No/Sq. Contamination; Casts 0-2 Hyaline LPF (Negative); Crystals Negative HPF (Negative); Epithelial Cells Many HPF (Negative); Mucus Heavy (Negative); RBC 0-2 HPF (0-2)
== END 2021-03-31 17:58 | disposition home or self-care (01) ==
PROVIDERS: Registered Nurse Emergency; Emergency Provider Physician Assistant; PCP Nurse Practitioner
DX: O26.892 Other specified pregnancy related conditions, second trimester (principal); R55 Syncope and collapse; Z3A.17 17 weeks gestation of pregnancy
CPT/HCPCS: 76805; 80053; 93005; 96360; 99284; 81003; 81015; 83735; 84439; 84443; 85025; 93010

== ENCOUNTER 2021-04-21 07:42 | Outpatient (REF) | payer OTHER, MEDICAID, SELFPAY | END 2021-04-21 07:43 | disposition home or self-care (01) | LOC: LBN 07:42 | PROVIDERS: PCP Nurse Practitioner; Visit Provider Advanced Practice Midwife | DX: Z87.440 Personal history of urinary (tract) infections (principal) | CPT/HCPCS: 87086 ==

== ENCOUNTER 2021-06-07 17:07 | Emergency (ER) | payer OTHER, MEDICAID, SELFPAY ==
[2021-06-07 17:07] VITALS: BP 118/82; PULSE 78; RESP 16; TEMP 36.6; O2SAT 94
--- NOTE | 2021-06-07 17:26 | W.ED.GENAD ---
Discharge Plan Disposition Patient Disposition: OTHER Condition: Poor Discharge Details Clinical Impression: Trauma during Primary Care Provider: Angela Jhaveri ED Provider: Marcy Carlin Home Meds and New Rx's Prescriptions: Continued prenat.vits,junior,[id number] Tablet 1 tab PO DAILY RF: 0 Discharge Instructions Additional Instructions: Plan is for you to be on a monitor for the next hour with women[facility] wellness on the labor and delivery floor. Urine to be taken via wheelchair to their monitoring area. Discharge plan will be made by them. If you develop increased pain, you may have the Tylenol as we discussed. If you develop evidence of other injury such as increased back pain, sensory deficits, weakness, headache, shortness of breath or the new/worsening symptoms please seek care urgently once again. Referrals: Angela Jhaveri [Primary Care Provider] - Discharge Data Discharge Date/Time-TO BE ENTERED AT DEPARTURE: 06/07/21 18:09 Medical Decision Making Patient is a 26 year old female presenting today with c/c of fall down 2 steps. Patient is , 26 weeks gestation. She describes a mechanical fall where she protected the baby and fell, landing on her back. Since the fall, which occurred at unknown amount of time ago, she has had left sided back and abdominal pain. No cramping. No vaginal bleeding or d/c. No radiation of pain. No sensory deficits, weakness. Denies striking her head. denies LOC, neck pain, chest pain, SOB. No pain in extremities. On exam, patient appears comfortable. She is diffusely tender across the left side of her spine as well as down the lumbar spine. No focal area tenderness. No step-off. She has good range of motion. Normal straight leg bilaterally. No focal area of pain on the abdominal exam. No evidence of trauma to her chest, head. No saddle paresthesias. 5 of 5 strength equal bilaterally lower extremities, no neurological deficit is appreciated Patient declines any Tylenol and analgesics. Reports that if she was not , she would not of come in today. Fast exam was performed by myself and Dr. Fuentes. No evidence of bleeding is appreciated. Normal heart rate. Doppler, heart rate 150. Patient and I discussed imaging of her spine. However, she does not believe that because of any fractures I would like to hold off on any imaging secondary to radiation risk. We did discuss the for not able to evaluate for spinal injury without further imaging. However, she would like to hold off and understands the risk associated with this. Consulted with Dr. Leija. She recommended that if the patient is not having contractions, bleeding with normal HR, does not feel she needs continued monitoring. Advised that if US was readily available, could check the placenta. Has fairly low suspicion for any significant injury to fetus. Rh is + on previous visits. Unable to have ultrasound immediately. Spoke with Molly, patient's floor sweeper, who agrees to accept the patient upstairs to labor and delivery department for heart rate monitoring. Discussed plan with the patient. Patient will be discharged from the emergency department but immediately upstairs to labor and delivery. She is aware that she may seek care in the emergency department at any time. We did discuss strict return precautions, particularly regarding her back pain has this is where exactly she struck. I did encourage close follow-up with primary care. All of her questions and concerns were addressed and she is agreement with this plan. HPI General Mode of arrival: EMS. Date/Time Provider Initiated Documentation: 06/07/21 17:13. Limitations to Documentation: no limitations. Information obtained by: patient, family (signficant other), EMS and RN notes reviewed. History of Present Illness 26 year old F presents to the emergency department with the chief complaint of left lower back pain, described as severe, with intensity rated at 10. Quality is described as aching, and is localized to the back. Patient abdomen (left side of abdomen). Patient started experiencing this minute(s) and it has been constant. Immobilization improves symptom(s), Movement worsens symptoms . Patient notes no other symptoms.. Patient did receive the following treatments prior to arrival, none Related Data Home Medications Medication Instructions Recorded Confirmed prenat.vits,junior,[id number] 1 tab PO DAILY 03/02/21 05/18/21 Allergies Allergy/AdvReac Type Severity Reaction Status Date / Time mushroom Allergy Severe Throat Verified 05/18/21 10:14 swelling General Stated Complaint: Trauma ENEDELIA: 2 Review of Systems Constitutional Constitutional: Reports as per HPI, Denies chills, Denies fever(s), Denies frequent falls and Denies headache(s) ENT Ears, Nose, Mouth, and Throat: Denies headache(s) Cardiovascular Cardiovascular: Denies chest pain, Denies dyspnea and Denies dyspnea on exertion Respiratory Respiratory: Denies cough, Denies dyspnea and Denies dyspnea on exertion Gastrointestinal Gastrointestinal: Denies fecal incontinence Genitourinary Genitourinary: Reports as per HPI, Denies abnormal vaginal bleeding, Denies urinary incontinence, Denies urinary hesitancy and Denies vaginal discharge Musculoskeletal Musculoskeletal: Reports as per HPI, Reports back pain, Denies muscle weakness, Denies numbness, Denies radiating pain into limb and Denies tingling Integumentary/Breasts Skin/Breast: Reports as per HPI and Denies rash Neurologic Neurologic: Reports as per HPI, Denies frequent falls, Denies headache(s), Denies localized weakness, Denies numbness, Denies radicular pain, Denies sensory deficit, Denies tingling and Denies paresthesias [facility] Active Problem List Trauma during (Acute) Flat nipple (Acute) History of oligohydramnios in prior , currently (Acute) History of urinary infection (Acute) Syncope (Chronic) (Acute) Late care (Acute) Adopted (Acute) Anxiety (Chronic) Depression (Chronic) H/O: knee surgery (Acute) Medical History (Updated 06/07/21 @ 18:01 by GEORGE Gonzalez) Cervical laceration 12/14/2019. Repaired in the OR total EBL approximately 1500 cc Contraceptive management 04/2020. OCPs started. Nexplanon reAUB.sulted in Date of last menstrual period (LMP) unknown Dysfunctional uterine bleeding Positive test Social History Smoking/Tobacco Use Status: Never Second Hand Exposure: No Smoking risk assessment performed?: Yes Alcohol Intake: never Drug use: Never Substance use type: does not use Adopted: Yes Caregiver/Support person: Yes Household members: significant other, children and other Details: dann Abdi and daughter Flower live with her parents. Housing: house Number of Children: 1 Communication Needs: None Do you need help understanding health information?: Never Sexually active: Yes What is your relationship status?: living with partner Panel score (0-1 are the most socially isolated patients): 1 Do you feel safe at home: Yes Do you feel safe in your relationship?: Yes Additional Social history: Patient does not work. Jin works at [employer]. History History 2 Para 0 Hx # Term Pregnancies 1 Multiple births 0 Hx # Pregnancies 0 Ectopic pregnancies 0 AB induced 0 Hx Number of Living Children 1 AB spontaneous 0 Past Pregnancies Del. Date GA/Weeks # Outcome Route Wgt Sex Labor Lgth Anesthesia Location Prov Complic 12/14/19 38 No Successful vaginal 2834.952 g Female 4hrs 21 min VIRGIL Lynn other Delivery Date: 12/14/19 Induced due to Oligohydramnios, periurethral ,labial, and upper left vag. sulcus lacerations, repair in OR for cervical tear. Kiara. Chan. Carolin Muniz Exam Const General: cooperative, healthy appearing, comfortable, no acute distress, well developed and well groomed Nutritional Appearance: average body habitus and well nourished Orientation: alert and awake [facility] Head: normal to inspection, no palpable skull fracture, normocephalic and atraumatic Eyes General: appearance normal, both eyes and all related structures Neck Neck: normal visual inspection and full ROM Chest Chest: normal inspection of the chest, no crepitus and no tenderness Resp Effort & Inspection: normal respiratory effort and able to speak in complete sentences Auscultation: clear to auscultation bilaterally, no rales, no rhonchi and no wheezes Cardio Rate: regular rate Rhythm: regular rhythm Heart Sounds: S1 normal and S2 normal GI Inspection: normal to inspection (normal for gestational age) and no abdominal wall ecchymosis Palpation: soft, not rigid and nontender Percussion: normal to percussion Back/Spine/Pelvis Thoracic/Lumbar Spine: thoraco-lumbar ROM normal and straight leg raise negative bilaterally Pelvis: no pain with anterior-posterior compression and no pain with lateral compression Back/spine/pelvis image: 1. area of discomfort. No swelling, discoloration. No focal area of tenderness, diffusely tender. No step off or deformity noted Skin General skin exam: no rashes or lesions noted Neuro General: patient alert and patient awake Cognition: normal cognition Speech: speech normal Gait: normal gait Motor: muscle tone normal throughout, strength 5/5 throughout, no movement abnormalities noted and no fasciculations Sensory Exam: no sensory deficits noted (no saddle paresthesias) DTR's: Rt Patellar: 2+, Lt Patellar: 2+, Rt Ankle: 2+ and Lt Ankle: 2+ Extrem General: normal to inspection, full ROM, capillary refill normal, no joint enlargement, no pedal edema, no calf tenderness and normal gait Psych Appearance: grossly normal and well kempt Mental Status: mental status grossly normal Speech and Movement: speech and movement normal Course Vital Signs Vital signs: Vital Signs Temperature 36.6 C 06/07/21 17:07 Pulse 78 06/07/21 17:07 Respiratory Rate 16 06/07/21 17:07 Blood Pressure 118/82 06/07/21 17:07 Pulse Oximetry 94 06/07/21 17:07 Temperature 36.6 C 06/07/21 17:07 Temperature Source Skin 06/07/21 17:07 Pulse 78 06/07/21 17:07 Respiratory Rate 16 06/07/21 17:07 Blood Pressure 118/82 06/07/21 17:07 Blood Pressure Position Supine 06/07/21 17:07 Pulse Oximetry 94 06/07/21 17:07 Oxygen Delivery Method Room Air 06/07/21 17:07 Oxygen Flow Rate 0 06/07/21 17:07 Pain Level 10 06/07/21 17:07
== END 2021-06-07 18:09 | disposition other institution (70) ==
LOC: ER 18:24
PROVIDERS: Emergency Provider Physician Assistant; PCP Nurse Practitioner
DX: O26.892 Other specified pregnancy related conditions, second trimester (principal); R10.9 Unspecified abdominal pain; M54.89 Other dorsalgia; Z3A.26 26 weeks gestation of pregnancy; W10.8XXA Fall (on) (from) other stairs and steps, initial encounter
CPT/HCPCS: 99281; 99283

== ENCOUNTER 2021-06-07 18:37 | Observation (INO) | payer OTHER, MEDICAID, SELFPAY ==
[2021-06-07 18:43] VITALS: BP 123/79; PULSE 68; RESP 14; TEMP 36.9
--- NOTE | 2021-06-07 19:23 | W.PM.OBHPL1 ---
Date of service: 06/07/21 Time of Service: 19:23 Assessment and Plan Assessment and plan (1) Trauma during : Status: Acute Assessment and plan: Admitted to observation. Will monitor x 1 hour[address] Plan reviewed with Dr Leija who agrees, OB-HPI Labor/Delivery History of Present Illness Reason for Visit: PRE MANAS Chief Complaint: Trauma/Fall (fell down 2 stairs) , Associated Signs and Symptoms: low back discomfort .. SHARITA Calculator Estimated Delivery Date Method Current WG Current Estimate 09/13/21 Ultrasound #2 26w 0d Other Estimates 10/12/21 LMP (Uncertain) 21w 6d 08/23/21 Ultrasound #1 29w 0d History of Present Expected Delivery Route/Plan - CNM FOB/ - Jin Nayak, 2nd child together hoping for water flu vac given 05/18/21 Specific Issues/Plan 1. History of oligo last 2. Patient and her are adopted and there is no family history available for either 3. [place] X 3, male 4. Previous difficulty d/t flat nipple, hx pierced nipples 4a. Referral to done____ 5. Hx anxiety & depression and cutting in the past 6. BV+ at initial OB, Rx'ed Flagyl 500 mg PO BID x7 days 7. Ecoli UTI at initial OB, Monurol 3 gms sachet x1 Rx'ed to pharmacy, plan LUTHER urine C&S next appt. negative for Ecoli Assessment: History Reviewed & Current Informed Consent Informed Consent: Other (recommended monitoring after a fall in ) [facility] Active Problem List Trauma during (Acute) Flat nipple (Acute) History of oligohydramnios in prior , currently (Acute) History of urinary infection (Acute) Syncope (Chronic) (Acute) Late care (Acute) Adopted (Acute) Anxiety (Chronic) Depression (Chronic) H/O: knee surgery (Acute) Medical History (Updated 06/07/21 @ 18:01 by GEORGE Gonzalez) Cervical laceration 12/14/2019. Repaired in the OR total EBL approximately 1500 cc Contraceptive management 04/2020. OCPs started. Nexplanon reAUB.sulted in Date of last menstrual period (LMP) unknown Dysfunctional uterine bleeding Positive test Social History Smoking/Tobacco Use Status: Never Second Hand Exposure: No Smoking risk assessment performed?: Yes Alcohol Intake: never Drug use: Never Substance use type: does not use Adopted: Yes Caregiver/Support person: Yes Household members: significant other, children and other Details: Jin, dann and daughter Flower live with her parents. Housing: house Number of Children: 1 Communication Needs: None Do you need help understanding health information?: Never Sexually active: Yes What is your relationship status?: living with partner Panel score (0-1 are the most socially isolated patients): 1 Do you feel safe at home: Yes Do you feel safe in your relationship?: Yes Additional Social history: Patient does not work. Jin works at [employer]. History History 2 Para 0 Hx # Term Pregnancies 1 Multiple births 0 Hx # Pregnancies 0 Ectopic pregnancies 0 AB induced 0 Hx Number of Living Children 1 AB spontaneous 0 Past Pregnancies Del. Date GA/Weeks # Outcome Route Wgt Sex Labor Lgth Anesthesia Location Prov Complic 12/14/19 38 No Successful vaginal 6 lb 4 oz Female 4hrs 21 min VIRGIL Lynn other Delivery Date: 12/14/19 Induced due to Oligohydramnios, periurethral ,labial, and upper left vag. sulcus lacerations, repair in OR for cervical tear. Kiara. Chan. Carolin Muniz Allergies and Home Medications Allergies Allergy/AdvReac Type Severity Reaction Status Date / Time mushroom Allergy Severe Throat Verified 05/18/21 10:14 swelling Home Medications Medication Instructions Recorded Confirmed Type prenat.vits,junior,[id number]-[id number] 1 tab PO DAILY 03/02/21 05/18/21 History Exam Physical Exam Vital signs: Temp Pulse Resp BP 98.4 F 68 14 123/79 06/07/21 18:43 06/07/21 18:43 06/07/21 18:43 06/07/21 18:43 Vital Signs Reviewed: Yes Narrative: Hoa presented to the ED by ambulance after a fall down 2 stairs. She denies hitting her abdomen but he did injury her side and is experiencing discomfort in her side and lower back. She reported that her pain was 10/10 in the ED. She declined pain medication. Constitutional Constitutional: no acute distress Detailed Labor and Delivery Exam Hughes Score: Cervical Points Exam 0 1 2 3 Dilation Closed 1-2cm 3-4 cm 5-6cm Effacement 0-30% 40-50% 60-70% 80% Consistency Firm Medium Soft Station -3 -2 -1,0 +1,+2 Position Posterior Mid Anterior Amniotic Membrane Status: Intact Contraction Frequency(min): none Fetus A Heart Rate Baseline: 140 Monitor Accelerations: 15 X 15 Variability: Moderate (6-25 BPM) Presentation: Cephalic Categories: Category I Respiratory Exam Respiratory Exam: Normal Cardiovascular Exam Cardiovascular Exam: Normal Abdominal Exam Abdominal Exam: Normal Extremities Exam Extremities Exam: Normal Back/Spine/Pelvis Exam Back Exam: Normal (no bruising noted) Skin Exam Skin Exam: Normal Psychiatric Exam Psychiatric Exam: Normal Additional findings Additional findings: Hoa has her partner with her for support. She reports mild discomfort. Risk Assessment Risk for Shoulder Dystocia Historical/Initial OB: NEGATIVE FOR: Pelvic Abnormality, Pre- BMI>30, Previous Shoulder Dystocia or Previous Macrosomia Increased Risk?: No Risk for Pre-Eclampsia Daily Dose ASA Indicated: No Yes, if one or more: NEGATIVE FOR: Hx Pre-E/Gest HTN, Chronic HTN, Multiple Gestation, Pre-gestational DM, Renal Disease, Systemic Lupus or APA Syndrome Yes, if 2 or more: NEGATIVE FOR: Nulliparity, Age>= 35 yrs, >10yr btwn pregnancies, BMI>30, ethinicty, Mother/Sister w/ Pre-E or Previous IUGR Risk for Post- Hemorrhage Initial: NEGATIVE FOR: Multiple Gestation, Previous PPH, Known Clotting Deficiency, Grand Multiparity or Anticoagulation At Risk?: No Risks Reviewed Risks Reviewed Upon Admission: Yes
[2021-06-07 20:10] VITALS: BP 123/79; PULSE 68; RESP 16; TEMP 36.9
--- NOTE | 2021-06-10 16:40 | DSE_ITS ---
Date of service: 06/07/21 Time of Service: 20:30 DS: Diagnosis Discharge Diagnosis (1) Trauma during : Status: Acute Asessment and Plan: Hoa was observed for one hour and she denies contractions. She has mild lower abdominal pain and low back pain. Instructed to call if pain persists. Recommended rest for a few days and tylenol. Call with decreased movement, contractions or bleeding. Discharge Plan Disposition Patient Disposition: HOME Condition: Good Discharge Details Reason For Visit: FALL DOWN STAIRS Admit Date/Time: 06/07/21 18:37 Admit Provider: Molly Bliss Attending Provider: Molly Bliss Primary Care Provider: Angela Jhaveri Home Meds and New Rx's Prescriptions: No Action prenat.vits,junior,[id number] Tablet 1 tab PO DAILY RF: 0 Discharge Instructions Activity:: Activity as Tolerated Equipment/Supplies:: No Equipment Needed Diet:: As Tolerated Discharge Orders Discharge Orders: Discharge Order (Routine); Ordered 06/10/21 Ordered By: Molly Bliss Discharge Data Discharge Date/Time-TO BE ENTERED AT DEPARTURE: 06/07/21 20:00 OB:DS Summary Contraception Discussed Contraception Discussed: No, Status at Discharge Functional status at discharge: independent ambulation Overall status at discharge: patient is back to baseline Mental Status: mental status grossly normal Speech and Movement: speech and movement normal Mood: congruent mood Affect: normal affect Exam Physical Exam Vital signs: Temp Pulse Resp BP 98.4 F 68 16 123/79 06/07/21 20:10 06/07/21 20:10 06/07/21 20:10 06/07/21 20:10 Constitutional Constitutional: no acute distress Abdominal Exam Abdomen: Other (soft, no bruising noted. ) Skin Exam Skin Exam: Normal (no bruising) [facility] Active Problem List Trauma during (Acute) Flat nipple (Acute) History of oligohydramnios in prior , currently (Acute) History of urinary infection (Acute) Syncope (Chronic) (Acute) Late care (Acute) Adopted (Acute) Anxiety (Chronic) Depression (Chronic) H/O: knee surgery (Acute) Medical History (Updated 11/15/21 @ 18:01 by GEORGE Gonzalez) Cervical laceration 12/14/2019. Repaired in the OR total EBL approximately 1500 cc Contraceptive management 04/2020. OCPs started. [facility] SmithKemsulted in Date of last menstrual period (LMP) unknown Dysfunctional uterine bleeding Positive test Social History Smoking/Tobacco Use Status: Never Second Hand Exposure: No Smoking risk assessment performed?: Yes Alcohol Intake: never Drug use: Never Substance use type: does not use Adopted: Yes Caregiver/Support person: Yes Household members: significant other, children and other Details: Jin, pt and daughter Flower live with her parents. Housing: house Number of Children: 1 Communication Needs: None Do you need help understanding health information?: Never Sexually active: Yes What is your relationship status?: living with partner Panel score (0-1 are the most socially isolated patients): 1 Do you feel safe at home: Yes Do you feel safe in your relationship?: Yes Additional Social history: Patient does not work. Jin works at [employer]. History History 2 Para 0 Hx # Term Pregnancies 1 Multiple births 0 Hx # Pregnancies 0 Ectopic pregnancies 0 AB induced 0 Hx Number of Living Children 1 AB spontaneous 0 Past Pregnancies Del. Date GA/Weeks # Outcome Route Wgt Sex Labor Lgth Anesthes ia Location Prov Complic 12/14/19 38 No Successful vaginal 6 lb 4 oz Female 4hrs 21 min VIRGIL Lynn other Delivery Date: 12/14/19 Induced due to Oligohydramnios, periurethral ,labial, and upper left vag. sulcus lacerations, repair in OR for cervical tear. Kiara. Chan. Carolin Muniz DS: Data Vitals/I&O Vitals and I&O: Vital Signs Temperature 98.4 F 06/07/21 20:10 Pulse 68 06/07/21 20:10 Respiratory Rate 16 06/07/21 20:10 Blood Pressure 123/79 06/07/21 20:10 Oxygen Delivery Method Room Air 06/07/21 20:10 Oxygen Flow Rate 0 06/07/21 20:10 Pain Level 5 06/07/21 20:10
== END 2021-06-07 20:00 | disposition home or self-care (01) ==
PROVIDERS: Admitting Provider Advanced Practice Midwife; PCP Nurse Practitioner; Visit Provider Advanced Practice Midwife
DX: Z04.3 Encounter for examination and observation following other accident (principal); W10.9XXA Fall (on) (from) unspecified stairs and steps, initial encounter; M54.50 Low back pain, unspecified; Z3A.26 26 weeks gestation of pregnancy
CPT/HCPCS: 59025; G0378

== ENCOUNTER 2021-06-22 00:39 | Outpatient (CLI) | payer OTHER, MEDICAID, SELFPAY ==
--- OUTSIDE RECORDS SUMMARY | 2021-06-22 00:42 | XMS_ITS ---
:1995 Author Care Team Providers Name Role Phone Adal Primary Care Provider Unavailable Allergies Code Code System Name Reaction Severity Status Onset NKDA ? Medications Name Status Start Date Stop Date ? ? Concerta Active ? Not available Implanon Active ? Not available Problems None recorded. Procedures Date Name Performed by ? ? Knee Surgery Information not avai lable Results Lab Results Date Name Specimen Result Interpretation Description Value Range Status Address ? 07/26/2018 beta-HCG, ? Quant 1 mIU/mL 0-5 Final T reasure Quantitative, Beta HCG mIU/mL [facility] Serum or Plasma ( [facility]): [address], [place] Past Encounters None recorded. Social History Tobacco Smoking Status Unknown If Ever Smoked Vaccine List None recorded. Plan of Care Reminders Provider Appointments None ? ? recorded. Lab None ? ? recorded. Referral None ? ? recorded. Procedures None ? ? recorded. Surgeries None ? ? recorded. Imaging None ? ? recorded. Vitals Height Weight BMI Blood Pressure 5 ft 5 in 134 lbs 12.8 oz 22.4 kg/m2 120/66 mm[Hg]
--- NOTE | 2021-06-22 06:45 | DI.US_ITS ---
Exam(s) US OB ADARSH WEIGHT EXAM: US OB ADARSH WEIGHT CLINICAL HISTORY: History of Oligohydramnios. TECHNIQUE: Transabdominal obstetrical ultrasound performed. COMPARISON: US US OB 2-3 TRIMESTER from 04/20/2021 FINDINGS: Transabdominal obstetrical ultrasound performed. FINDINGS: Number of fetuses: One. position: Transverse lie with the head to the right. Placental location: Anterior grade 1 placenta. No evidence of previa. BIOMETRIC DATA: BPD: 69 mm = 27 weeks 5 days HC: 257 mm = 28 weeks AC: 253 mm = 29 weeks 3 days FL: 50 thigh mm = 28 weeks EFW: 1267 grms 58% Composite Age: 28 weeks 2 days EDC: 09/12/2021 Heart Rate: 140BPM Amniotic fluid index: 16.4 cm. Visually, amount of fluid is within normal limits. IMPRESSION: 1. Single live intrauterine gestation as above. 2. Estimated weight is 1267gms. 3. Amniotic fluid index is 16.4 cm. Visually within normal limits. DATA REPOSITORY:
== END 2021-06-22 00:59 ==
PROVIDERS: PCP Nurse Practitioner; Visit Provider Advanced Practice Midwife
DX: O09.293 Supervision of pregnancy with other poor reproductive or obstetric history, third trimester (principal)
CPT/HCPCS: 76816

== ENCOUNTER 2021-06-22 02:31 | Outpatient (CLI) | payer OTHER, MEDICAID, SELFPAY ==
[2021-06-22 10:16] LABS: HCT 37.7 % (36.0-46.0); HGB 12.1 g/dL (11.2-15.7); MCH 30.5 pg (27.0-33.0); MCHC 32.1 % (32.0-36.0); MPV 10.6 fL (8.0-11.0); Platelet Count 265 10^3/uL (130-400); RBC 3.97 10^6/uL (3.93-5.22); RDW 13.5 % (11.7-14.6); RDW-SD 47.1 fL; WBC 10.35 10^3/uL (4.4-10.8)
[2021-06-22 10:27] LABS: Glucose,1 Hr (Glucola) 112 mg/dL (80-140)
== END 2021-06-22 02:32 | disposition home or self-care (01) ==
LOC: LBO 02:31
PROVIDERS: Advanced Practice Midwife; PCP Nurse Practitioner; Visit Provider Advanced Practice Midwife
DX: O09.33 Supervision of pregnancy with insufficient antenatal care, third trimester (principal)
CPT/HCPCS: 36415; 82950; 85027

== ENCOUNTER 2021-07-30 10:34 | Outpatient (CLI) | payer OTHER, MEDICAID, SELFPAY ==
[2021-07-30 11:40] VITALS: BP 121/73; PULSE 98; TEMP 37.1
[2021-07-30 11:44] VITALS: BP 121/73; PULSE 98
--- NOTE | 2021-07-30 17:43 | W.OBNST ---
Date of service: 07/30/21 Time of Service: 12:30 NST Evaluation Reason for NST Reasons for Nonstress Test: OTHER, SEE COMMENT Reason for NST Other: well-being Gestational Age Gestational Age in Weeks and Days: 33 Weeks and 4Days Test and Monitor Explained Test/Monitor Explained: Test Explained, Monitor Explained and Patient Verbalized Understanding Vital Signs Blood Pressure: 121/73 Pulse: 98 Temperature: 98.8 F Urine Results Urine Protein: Negative Urine Ketones: Negative Urine Glucose: Negative Urine Blood: Negative NST Information Date on Monitor: 07/30/21 Time on Monitor: 11:36 Date off Monitor: 07/30/21 Time off Monitor: 11:37 Total Time on Monitor: 1 NST Interventions: PO Hydration Contraction Frequency: 0 NST Evaluation Patient States Movement: Present FHR Baseline: 130 Variability: Moderate 6-25 bpm Accelerations: 15x15 Decelerations: None NST Results: Reactive Note NST Note Note: Hoa awoke this morning when her toddler hit her in the lower abdomen and awoke her abruptly. She jumped up from the bed quickly and reported lower abdominal pain after the incident. She also reported that she saw blood in her urine after the incident. Urine dip was neg for blood. monitoring was performed for 1 hour with no evidence of contractions and Hoa appeared to be in no discomfort or distress. Precautions reviewed and Hoa was instructed to call if symptoms recurred. rest x 24 hours recommended. NST Reviewed and Verified by: Molly Bliss
[2021-07-30 17:46] VITALS: BP 121/73; PULSE 98; TEMP 37.1
== END 2021-07-30 12:40 | disposition home or self-care (01) ==
LOC: BCD 10:48 → OBS 11:39
PROVIDERS: PCP Nurse Practitioner; Visit Provider Advanced Practice Midwife
DX: O36.8930 Maternal care for other specified fetal problems, third trimester, not applicable or unspecified (principal); O9A.213 Injury, poisoning and certain other consequences of external causes complicating pregnancy, third trimester; R10.30 Lower abdominal pain, unspecified; W50.0XXA Accidental hit or strike by another person, initial encounter; Z3A.33 33 weeks gestation of pregnancy; R31.0 Gross hematuria
CPT/HCPCS: 59025

== ENCOUNTER 2021-08-06 01:53 | Outpatient (CLI) | payer OTHER, MEDICAID, SELFPAY ==
--- NOTE | 2021-08-06 07:30 | DI.US_ITS ---
Exam(s) US OB ADARSH WEIGHT EXAM: US OB ADARSH WEIGHT CLINICAL HISTORY: size less than dates,Z34.90,SMALL FOR AGE. TECHNIQUE: Transabdominal obstetrical ultrasound was performed. COMPARISON: US US OB ADARSH WEIGHT from 06/22/2021 FINDINGS: There is a single viable intrauterine gestation with cardiac activity identified-152 bpm The fetus is presently in cephalic position . Amniotic fluid: There is a normal amount of amniotic fluid with an ADARSH of 16.9cm. Placental location: The placenta is anterior grade 2,with no evidence of placenta previa. Dating parameters place this at approximately 34 weeks and 1 day gestational age, implying SHARITA of September 16, 2021.. BPD measures 34 weeks and 3 days HC measures 33 weeks and 5 days AC measures 33 weeks and 4 days FL measures 34 weeks and 5 Estimated weight is 2320 gm-5 pounds 2 ounces Fetus is at the 28th percentile on the Hadlock scale. IMPRESSION:: Viable 3rd trimester gestation, as described above. DATA REPOSITORY:
== END 2021-08-06 02:13 ==
PROVIDERS: PCP Nurse Practitioner; Visit Provider Advanced Practice Midwife
DX: O26.843 Uterine size-date discrepancy, third trimester (principal); Z3A.34 34 weeks gestation of pregnancy
CPT/HCPCS: 76816

== ENCOUNTER 2021-08-16 16:38 | Outpatient (REF) | payer OTHER, MEDICAID, SELFPAY ==
[2021-08-16 20:21] LABS: *AMPHETAMINES SCREEN URINE Negative (Negative); *BARBITURATES SCREEN URINE Negative (Negative); *BENZODIAZEPINES SCREEN URINE Negative (Negative); Cannabinoids THC Negative (Negative); Cocaine Screen,Urine Negative (Negative); METHADONE URINE SCREEN Negative (Negative); OPIATES URINE SCREEN Negative (Negative)
[2021-08-16 20:22] LABS: Tricyclic Antidepressants Negative (Negative)
[2021-08-24 14:38] LABS: Buprenorphine Negative ng/mL (Cutoff: 5.0); Norbuprenorphine Negative ng/mL (Cutoff: 2.5)
== END 2021-08-16 16:39 | disposition home or self-care (01) ==
LOC: LBN 16:38
PROVIDERS: PCP Nurse Practitioner; Visit Provider Advanced Practice Midwife
DX: Z34.93 Encounter for supervision of normal pregnancy, unspecified, third trimester (principal)
CPT/HCPCS: 80307; 87081

== ENCOUNTER 2021-08-23 18:17 | Outpatient (REF) | payer OTHER, MEDICAID, SELFPAY | END 2021-08-23 18:18 | disposition home or self-care (01) | LOC: LBN 18:17 | PROVIDERS: PCP Nurse Practitioner; Visit Provider Advanced Practice Midwife | DX: N89.8 Other specified noninflammatory disorders of vagina (principal) | CPT/HCPCS: 87480; 87510; 87660 ==

== ENCOUNTER 2021-08-30 01:57 | Outpatient (CLI) | payer OTHER, MEDICAID, SELFPAY ==
--- NOTE | 2021-08-30 07:15 | DI.US_ITS ---
Exam(s) US OB ADARSH WEIGHT EXAM: US OB ADARSH WEIGHT CLINICAL HISTORY: ,Z34.90,SMALL FOR DATES. TECHNIQUE: Transabdominal obstetrical ultrasound was performed. COMPARISON: No exams were available for comparison FINDINGS: There is a single viable intrauterine gestation with cardiac activity identified-120 bpm The fetus is presently in cephalic position . Amniotic fluid: There is a normal amount of amniotic fluid with an ADARSH of 13.3cm. Placental location: The placenta is anterior grade 2,with no evidence of placenta previa. Dating parameters place this at approximately 36 weeks and 4 days gestational age, implying SHARITA of September 23, 2021. BPD measures 36 weeks and 2 days HC measures 36 weeks and 3 days AC measures 36 weeks and 5 days FL measures 36 weeks and 5 days Estimated weight is 2990 gm-6 pounds 9 ounces Fetus is at the 27th percentile on the Hadlock scale. IMPRESSION:: Viable 3rd trimester gestation, as described above. DATA REPOSITORY:
== END 2021-08-30 02:17 ==
PROVIDERS: PCP Nurse Practitioner; Visit Provider Advanced Practice Midwife
DX: O26.843 Uterine size-date discrepancy, third trimester (principal); Z3A.36 36 weeks gestation of pregnancy
CPT/HCPCS: 76816

== ENCOUNTER 2021-09-08 16:38 | Outpatient (REF) | payer OTHER, MEDICAID, SELFPAY | END 2021-09-08 16:39 | disposition home or self-care (01) | LOC: LBN 16:38 | PROVIDERS: PCP Nurse Practitioner; Visit Provider Advanced Practice Midwife | DX: N89.8 Other specified noninflammatory disorders of vagina (principal) | CPT/HCPCS: 87480; 87510; 87660 ==

== ENCOUNTER 2021-09-15 19:41 | Outpatient (REF) | payer OTHER, MEDICAID, SELFPAY ==
[2021-09-17 15:21] LABS: Chlamydia Result Negative (Negative); GC Result Negative (Negative)
== END 2021-09-15 19:42 | disposition home or self-care (01) ==
LOC: LBN 19:41
PROVIDERS: PCP Nurse Practitioner; Visit Provider Advanced Practice Midwife
DX: N89.8 Other specified noninflammatory disorders of vagina (principal); Z11.3 Encounter for screening for infections with a predominantly sexual mode of transmission
CPT/HCPCS: 87491; 87591

== ENCOUNTER 2021-09-17 23:29 | Inpatient (IN) | payer OTHER, MEDICAID, SELFPAY ==
[2021-09-17] MEDS: Oxytocin 10 UNITS/ML VIAL IM (00:38)
[2021-09-17 23:34] VITALS: BP 129/88; RESP 18; TEMP 36.8
[2021-09-18] VITALS (22 sets, daily range): BP systolic 103–153; BP diastolic 59–88; PULSE 73–97; RESP 16–20; TEMP 36.6–37.1; O2SAT 97–99
[2021-09-18] LABS: Source Nasal/Nares
--- NOTE | 2021-09-18 | HPE_ITS ---
Date of service: 09/18/21 Time of Service: 00:00 Assessment and Plan Assessment and plan (1) Spontaneous onset of labor: Status: Acute Assessment and plan: A: 26 yo @ 40+5 wks GBS neg, Rh+ low risk multipara with benign AP course low risk for SD and PPH though had elevated EBL from lacerations at previous delivery P: Admit to BC, T&S, CBC, COVID swab Expectant management Anticipate OB-HPI Labor/Delivery History of Present Illness Reason for Visit: Term Labor Chief Complaint: Uterine Contractions (starting at 2100, small amt bloody mucous seen, no ROM, no vomiting). SHARITA Calculator Estimated Delivery Date Method Current WG Current Estimate 09/13/21 Ultrasound #2 40w 5d Other Estimates 10/12/21 LMP (Uncertain) 36w 4d 08/23/21 Ultrasound #1 43w 5d History of Present Expected Delivery Route/Plan - CNM FOB/ - Jin Nayak, 2nd child together BB, yes to circ GBS negative would like to labor in tub, considering water Specific Issues/Plan 1. History of oligo last ; S<D this in 3rd trimester: 1a. US at 28 week transverse lie, 58% growth, normal ADARSH 1b. US at 34 week Vertex, 28% growth, normal ADARSH 2. Patient and her are adopted and there is no family history available for either 3. [place] X 3, male 4. Previous difficulty d/t flat nipple, hx pierced nipples 4a. Referral to ordered 5. Hx anxiety & depression and cutting in the past 6. BV+ at initial OB, Rx'ed Flagyl 500 mg PO BID x7 days 7. Ecoli UTI at initial OB, Monurol 3 gms sachet x1 Rx'ed to pharmacy, plan LUTHER urine C&S next appt. negative for Ecoli 8. Desires BTL (or if C/S). Counseled and signed consent 07/05/21 9. Denzel are COVID vaccinated and boosted Assessment: History Reviewed & Current Review of Systems Constitutional Constitutional: Reports system reviewed and no additional complaints, except as documented Cardiovascular Cardiovascular: Reports system reviewed and no additional complaints, except as documented Respiratory Respiratory: Reports system reviewed and no additional complaints, except as documented Gastrointestinal Gastrointestinal: Reports system reviewed and no additional complaints, except as documented Genitourinary Genitourinary: Reports as per HPI Musculoskeletal Musculoskeletal: Reports system reviewed and no additional complaints, except as documented Integumentary/Breasts Skin/Breast: Reports system reviewed and no additional complaints, except as doc umented Neurologic Neurologic: Reports system reviewed and no additional complaints, except as documented Psychiatric Psychiatric: Reports system reviewed and no additional complaints, except as documented PFSH All Active Problems Spontaneous onset of labor (Acute) Flat nipple (Acute) History of oligohydramnios in prior , currently (Acute) (Acute) Adopted (Acute) unknown family medical history Anxiety (Chronic) Depression (Chronic) remote hx of cutting H/O: knee surgery (Acute) Medical History (Updated 09/18/21 @ 00:17 by Ana M Junior) Cervical laceration 12/14/2019. Repaired in the OR total EBL approximately 1500 cc Contraceptive management 04/2020. OCPs started. Nexplanon reAUB.sulted in Date of last menstrual period (LMP) unknown Dysfunctional uterine bleeding History of urinary infection Syncope Trauma during fell down stairs @ 25 wks of Vaginal discharge Social History Smoking/Tobacco Use Status: Never Second Hand Exposure: No Smoking risk assessment performed?: Yes Alcohol Intake: never Drug use: Never Substance use type: does not use Adopted: Yes Caregiver/Support person: Yes Household members: significant other, children and other Details: Jin, pt and daughter Flower live with her parents. Housing: house Number of Children: 1 Communication Needs: None Do you need help understanding health information?: Never Sexually active: Yes What is your relationship status?: living with partner Panel score (0-1 are the most socially isolated patients): 1 Do you feel safe at home: Yes Do you feel safe in your relationship?: Yes Additional Social history: Patient does not work. Jin works at [employer]. History History 2 Para 1 Hx # Term Pregnancies 1 Multiple births 0 Hx # Pregnancies 0 Ectopic pregnancies 0 AB induced 0 Hx Number of Living Children 1 AB spontaneous 0 Past Pregnancies Del. Date GA/Weeks # Outcome Route Wgt Sex Labor Lgth Anesthes ia Location Prov Complic 12/14/19 38 No Successful vaginal 6 lb 4 oz Female 4hrs 21 min VIRGIL Lynn other Delivery Date: 12/14/19 Last Updated by: Molly Bliss CNM IOL FOR oligohydramnios. Periurethral, labial, and left sulcus lacs, repair in OR for cervical tear by MD. Crenshaw. EBL intraoperatively was 400 cc. Meds Allergies and Home Medications Allergies Allergy/AdvReac Type Severity Reaction Status Date / Time mushroom Allergy Severe Throat Verified 09/15/21 15:44 swelling Home Medications Medication Instructions Recorded Confirmed Type prenat.vits,junior,[id number] 1 tab PO DAILY 03/02/21 09/15/21 History Exam Physical Exam Vital signs: Temp Resp BP 98.2 F 18 129/88 09/17/21 23:34 09/17/21 23:34 09/17/21 23:34 Vital Signs Reviewed: Yes Constitutional Constitutional: mild distress, average body habitus and cooperative Detailed Labor and Delivery Exam Dilation: 6 Effacement (%): 90 station: -2 Position: ROP Cervix position: anterior Consistency: soft Amniotic Membrane Status: Intact Monitor Mode: External Contraction Frequency(min): q2-3 Contraction Duration(sec): 60 Contraction Intensity: Moderate/Strong Fetus A Heart Rate Baseline: 140 Monitor Accelerations: 15 X 15 Monitor Decelerations: None Variability: Moderate (6-25 BPM) Presentation: Vertex Categories: Category I Est. Weight: 6 lb 6.294 oz Est. Weight: 2900 gms HEENT Exam HEENT Exam: Normal Neck Exam Neck Exam: Normal Chest/Brest/Axilla Exam Chest Exam: Normal Breast Exam Breast Exam: Not Done Respiratory Exam Respiratory Exam: Normal Cardiovascular Exam Cardiovascular Exam: Normal Abdominal Exam Abdominal Exam: Normal (gravid) Rectal Exam Rectal Exam: Normal Exam Exam: Normal Extremities Exam Extremities Exam: Normal Back/Spine/Pelvis Exam Back Exam: Normal Pelvis Adequate: Yes Skin Exam Skin Exam: Normal Neurological Exam Neurological Exam: Normal Psychiatric Exam Psychiatric Exam: Normal Results Results Group Beta Strep: Negative Blood Type: AB+ Rubella Status: Immune Varicella Immunity: Immune Risk Assessment Risk for Shoulder Dystocia Historical/Initial OB: NEGATIVE FOR: Pelvic Abnormality, Pre- BMI>30, Previous Shoulder Dystocia or Previous Macrosomia 40 Weeks: NEGATIVE FOR: EFW> 4500 gms, Maternal Weight Gain >40lb or Post Dates Increased Risk?: No Delivery Plan @ 36wks: NVD 08/16/21 KH Delivery Plan @ 40 wks: spont labor, Risk for Pre-Eclampsia Date Initiated/Initials: not indicated Yes, if one or more: NEGATIVE FOR: Hx Pre-E/Gest HTN, Chronic HTN, Multiple Gestation, Pre-gestational DM, Renal Disease, Systemic Lupus or APA Syndrome Yes, if 2 or more: NEGATIVE FOR: Nulliparity, Age>= 35 yrs, >10yr btwn pregnancies, BMI>30, ethinicty, Mother/Sister w/ Pre-E or Previous IUGR Risk for Post- Hemorrhage Initial: NEGATIVE FOR: Multiple Gestation, Previous PPH, Known Clotting Deficiency, Grand Multiparity or Anticoagulation At Risk?: Yes (elevated risk from hx of increased EBL due to lacerations previous deliv.) Counseled re: Active Management: Yes Risks Reviewed Risks Reviewed Upon Admission: Yes
[2021-09-18 00:01] LABS: HGB 14.3 g/dL (11.2-15.7); MCHC 31.8 % (32.0-36.0); MCV 94.5 fL (80-95); MPV 11.5 fL (8.0-11.0); Platelet Count 231 10^3/uL (130-400); RBC 4.76 10^6/uL (3.93-5.22); RDW 13.2 % (11.7-14.6); RDW-SD 45.9 fL; WBC 15.28 10^3/uL (4.4-10.8)
[2021-09-18 00:39] LABS: COVID-19 PCR Negative (Negative)
--- NOTE | 2021-09-18 00:50 | OBVDS_ITS ---
Date of service: 09/18/21 Time of Service: 00:50 OB Labor/ Delivery Information Baby A Delivery Delivery Method: Spontaneaous Presentation: Cephalic Cephalic Position: Vertex Vertex Position: Right Occipital Anterior Breech Position: N/A Cord Description-Baby A: 3 Vessels, Nuchal Cord (loose, reduced overhead), Reduced and Other (left nuchal hand, arm delivered prior to shoulder then nuchal cord was reduced) Amniotic Fluid: Meconium Estimated Blood Loss: 150 ml Delivery Outcome: Liveborn Transferred: Remains with Mother Providers Nurse Social Research Assistant: Ana M Junior Nurse: Elena Olmstead Nurse: Tracee López Labor/Delivery Information Number of Babies in Womb: 1 Steroids Given: None Reason Steroids Not Administered: N/A Group Beta Strep: Negative Antibiotics Administered: No Rubella Status: Immune Blood Type: AB+ Varicella Immunity: Immune Medication in Delivery: pitocin 10 units IM after Born En Route: No Maternal Complications: None Shoulder Dystocia: No Note: Labor tub was prepared and nitrous oxide placed at bedside as pt progressed rapidly to 9 cm with descent to 0 station. Intermittent auscultation was reassuring, AROM @ 0034 for small amt of meconium stained fluid. Involuntary urges to push began, 2nd stage huddle completed, on bed in semifowlers position of a vigorous male over intact perineum @ 0037. Nuchal left hand noted followed by full arm extension before delivery of shoulder, loose nuchal cord reduced over head and delivery of body followed easily. to mother's arms immediately, 10 units of pitocin given IM. Cord had ceased pulsating, c lamped and then cut by Rosario HENSON placenta delivered intact, 3VC. Fundus firm and well below umbilicus, perineum and vagina inspected and found to be intact, minimal rubra, strong bonding noted. Apgars 8/9, wt 3035 gms. Stages of Labor Onset of Labor Date: 09/17/21 Onset of Labor Time: 21:00 Complete Dilatation Date: 09/18/21 Complete Dilatation Time: 12:35 Labor - Stage 1 Duration: 24 hours and 0 minutes ROM Baby A: 09/18/21 ROM Baby A: 00:34 ROM Total Time- Baby A: [id number] Delivery Date-Baby A: 09/18/21 Delivery Time-Baby A: 00:37 Labor Stage 2 Duration: -718 minutes Placenta Delivery Date-Baby A: 09/18/21 Placenta Delivery Time-Baby A: 00:42 Labor-Stage 3 Duration: 5 minutes Total Length of Labor-Baby A: 3 hours and 37 minutes Placenta Status: Delivered Baby A Infant Gender: Male Gestational Status: Term (39-41.6 wks) Gestational Age in Weeks/Days: 40 Weeks and 5 Days weight: 6 lb 11.056 oz Weight Comment: 3035 gms Score-1 Minute Interval(Baby A) Heart Rate-1 minute: 100 BPM or Greater Respiratory Effort- 1 minute: Slow Respiration/Weak Cry Muscle Tone-1 minute: Active Movement Reflex Response-1 minute: Prompt Response Color-1 minute: Bluish Hands or Feet Score-5 Minute Interval(Baby A) Heart Rate- 5 minute: 100 BPM or Greater Respiratory Effort-5 minute: Spontaneous/Strong Cry Muscle Tone-5 minute: Active Movement Reflex Response-5 minute: Prompt Response Color-5 minute: Bluish Hands or Feet
[2021-09-18] MEDS: Ibuprofen 600 MG TAB PO (01:25)
[2021-09-18] MEDS: miSOPROStol 200 MCG TAB 400 MCG SL (02:45)
--- NOTE | 2021-09-18 02:55 | NUR.NOTE ---
Nursing Note: Pt ambulated to toilet and heavy lochia noted. Several clots passed into hat and pt continued to trickle. [facility] notified and ordered 600mcg cytotec which was immediately given. Pt assisted back to bed and VIRGIL herrera manually extracted a 50ml clot and straight cathed pt for 50ml urine. Pt assisted back to toilet and another 150ml blood passed into hat but trickle stopped and pt voided another 50ml of urine. Bleeding controlled and pt assisted back to bed. At present yanet remains at bedside. Bleeding is scant and Fundus firm. QBL 400ml
[2021-09-18] MEDS: Oxytocin/Normal Saline 30 UNIT/500 ML BAG 999 UNITS IV (03:50)
--- NOTE | 2021-09-18 03:57 | W.PM.OBPNV1 ---
Date of service: 09/18/21 Time of Service: 03:58 Assessment and Plan Assessment and plan (1) Term delivered: Status: Acute (2) Uterine atony, , without hemorrhage: Status: Acute Assessment and plan: A: 4 hrs intermittent lower segment atony hemostatically stable with cumulative QBL 750 ml P: Has received pitocin IM, pitocin IV, misoprostel & TXA Will continue pitocin IV through a second 500 ml bag @ 95ml/hr Monitor closely for further blood loss Check CBC in 24 hrs Ancef 2 gms prophylactically Subjective Subjective Patient comments: Pain well controlled and Tolerating diet Patient's Mood: happy baby status: Nursing well, Rooming in and Strong Bonding Observed feeding status: Exclusively breast feeding Exam Physical Exam Vital signs: Temp Pulse Resp BP 98.4 F 75 16 134/74 09/18/21 01:09 09/18/21 03:46 09/18/21 01:31 09/18/21 03:46 Vital Signs Reviewed: Yes Narrative: s/p @ 0037, nml 3rd stage, 10 units pitocin given IM, minimal rubra @ 1 hr , no lacerations, fundus firm below umbilicus, EBL 150 ml. At 2 hrs 0230, called to room by RN as clots and blood were on the floor while pt was ambulating to BR Pt assisted back to bed, fundus firm but right of midline, straight cath 50 ml urine, manual uterine sweep removed large clot. Additional EBL/QBL 400 ml. Pt hemostatically stable, asymptomatic, misoprostel 600 mcg PO given, lochia minimal, pt having a snack. At 0430, called to room for increased vaginal bleeding. Small amt clots evacuated from lower uterine segment,fundus firm below umbilicus & midline. Pt remaining hemostatically stable, BP 142/85, pulse 96. Started IV and bolused pitocin 250 ml, then to 95 ml/hr, TXA 1 gm given IVPB. Additional EBL 200 ml (pad and evacuated clots). Pt tired and dozing, very minimal lochia at this time with fundus firm below umbilicus and midline. Results Hemoglobin/Hematocrit: Hgb 14.3 g/dL (11.2-15.7) 09/17/21 23:50 Hct 45.0 % (36.0-46.0) 09/17/21 23:50 Abnormal Lab Findings: Abnormal Labs 09/17/21 23:50 WBC 15.28 H MCHC 31.8 L MPV 11.5 H
[2021-09-18] MEDS: ceFAZolin 2,000 MG in Normal Saline 100 ML 200 MG IVPB (04:49)
[2021-09-18] MEDS: Oxytocin/Normal Saline 30 UNIT/500 ML BAG 95 UNITS IV (05:22)
[2021-09-18] MEDS: Hamamelis Leaf/Glycerin 100 EACH BOX PR (09:49)
--- NOTE | 2021-09-19 07:29 | W.PM.OBPNV1 ---
Date of service: 09/19/21 Time of Service: 07:29 Assessment and Plan Assessment and plan (1) Term delivered: Status: Acute Assessment and plan: A: PPD#1, nml recovery Hgb 12.5 this morning, WBC 12.1 with difficulty, Supplementing with formula Desires discharge to home today Increased risk for PPD d/t hx of depression Pt and report good supports in place at home P: circumcision today Resume PNV's and iron supplement after first BM F/up at 2 & 6 wks Pt is planning for BTL at 6-8 wks Sx of baby blues vs increasing depression discussed with pt Written instructions reviewed and given to pt (2) Uterine atony, , without hemorrhage: Status: Acute Assessment and plan: Resolved since 4 hrs Subjective Subjective Interval history: Pt states she is satisfied with experience Patient comments: No complaints, Pain well controlled, Tolerating diet and Flatus present Patient's Mood: sleepy this morning [place] baby status: Doing well, Nursing well (having difficulty with latch, plan is to supplement with formula), Rooming in and Strong Bonding Observed [place] feeding status: Breast and formula feeding and Pumping and bottle feeding Exam Physical Exam Vital signs: Temp Pulse Resp BP Pulse Ox 98.1 F 75 18 137/88 99 09/18/21 19:25 09/18/21 19:25 09/18/21 19:25 09/18/21 19:25 09/18/21 19:25 Vital Signs Reviewed: Yes Constitutional Constitutional: no acute distress, average body habitus and cooperative HEENT Exam HEENT Exam: Normal Neck Exam Neck Exam: Normal Breast Exam Bilateral: Breast Exam: Normal and Soft Nipple Exam: Normal and Bruised Comments: pt has somewhat flat nipples, has been using nipple shield, Respiratory Exam Respiratory Exam: Normal Cardiovascular Exam Cardiovascular Exam: Normal Abdominal Exam Abdomen: Other (soft and nontender) Fundal Exam Fundus: Below Umbilicus and Firm Rectal Exam Rectal Exam: Normal Exam Perineum: Intact Extremities Exam Extremity Exam: Normal, Full ROM, Normal Capillary Refill and Warm to Touch Back/Spine/Pelvis Exam Back Exam: Normal Skin Exam Skin Exam: Normal Neurological Exam Neurological Exam: Normal Psychiatric Exam Psychiatric Exam: Normal
[2021-09-19 07:47] LABS: HCT 38.4 % (36.0-46.0); HGB 12.5 g/dL (11.2-15.7); MCHC 32.6 % (32.0-36.0); MCV 95.3 fL (80-95); MPV 11.2 fL (8.0-11.0); Platelet Count 226 10^3/uL (130-400); RBC 4.03 10^6/uL (3.93-5.22); RDW 13.2 % (11.7-14.6); RDW-SD 45.6 fL; WBC 12.21 10^3/uL (4.4-10.8)
--- NOTE | 2021-09-19 08:14 | W.PM.OBDISCH ---
Date of service: 09/19/21 Time of Service: 08:14 DS: Diagnosis Discharge Diagnosis (1) Term delivered: Status: Acute (2) Uterine atony, , without hemorrhage: Status: Acute Discharge Plan Disposition Patient Disposition: HOME Condition: Good Discharge Details Reason For Visit: Term Labor Admit Date/Time: 09/17/21 23:29 Admit Provider: Ana M Junior Attending Provider: Ana M Junior Primary Care Provider: Angela Jhaveri Hospital Course Hospital Course: shortly after arrival to center, increased blood loss over first 4 hrs but stabilized well, nml course, desires discharge on PPD#1 Home Meds and New Rx's Prescriptions: No Action prenat.vits,junior,[id number] Tablet 1 tab PO DAILY 0RF Discharge Instructions Additional Instructions: Please call the office Monday morning to make 2 & 6 wk appointments with your drafter electrical, call for any concerns or questions at any time. Stand Alone Forms: BC Instructions, NB Circumcision Care Inst., NB [place] Instructions, BC Post Vaginal Deliver Activity:: Activity as Tolerated Equipment/Supplies:: No Equipment Needed Diet:: Normal Diet Discharge Orders Discharge Orders: Discharge Order (Routine); Ordered 09/19/21 Ordered By: Ana M Junior OB:DS Summary Summary Vaginal Delivery Method: Spontaneaous Episiotomy Description: None Laceration Description: None Laceration Extension: N/A Contraception Discussed Contraception Discussed: Yes Contraceptive Plan: Tubal Ligation, Infant Gender-Baby A: Male weight: 6 lb 11.056 oz Status at Discharge Functional status at discharge: independent ambulation Overall status at discharge: patient is progressing back to baseline Mental Status: mental status grossly normal Speech and Movement: speech and movement normal and speech clear Mood: congruent mood Affect: normal affect Exam Physical Exam Vital signs: Temp Pulse Resp BP Pulse Ox 98.1 F 75 18 137/88 99 09/18/21 19:25 09/18/21 19:25 09/18/21 19:25 09/18/21 19:25 09/18/21 19:25 Constitutional Constitutional: no acute distress, average body habitus and cooperative HEENT Exam HEENT Exam: Normal Neck Exam Neck Exam: Normal Breast Exam Bilateral: Breast Exam: Normal and Soft Comments: pt has somewhat flat nipples, has been using nipple shield, Respiratory Exam Respiratory Exam: Normal Cardiovascular Exam Cardiovascular Exam: Normal Abdominal Exam Abdomen: Other (soft and nontender) Fundal Exam Fundus: Below Umbilicus and Firm Rectal Exam Rectal Exam: Normal Exam Perineum: Intact Extremities Exam Extremity Exam: Normal, Full ROM, Normal Capillary Refill and Warm to Touch Back/Spine/Pelvis Exam Back Exam: Normal Skin Exam Skin Exam: Normal Neurological Exam Neurological Exam: Normal Psychiatric Exam Psychiatric Exam: Normal PFSH All Active Problems (Updated 09/18/21 @ 03:59 by Ana M Junior) Uterine atony, , without hemorrhage (Acute) Term delivered (Acute) Flat nipple (Acute) Adopted (Acute) unknown family medical history Anxiety (Chronic) Depression (Chronic) remote hx of cutting Medical History (Updated 09/18/21 @ 03:59 by Ana M Junior) Cervical laceration 12/14/2019. Repaired in the OR total EBL approximately 1500 cc Dysfunctional uterine bleeding History of urinary infection Spontaneous onset of labor Syncope Trauma during fell down stairs @ 25 wks of Surgical History (Updated 09/18/21 @ 01:07 by Ana M Junior) H/O: knee surgery Social History Smoking/Tobacco Use Status: Never Second Hand Exposure: No Smoking risk assessment performed?: Yes Alcohol Intake: never Drug use: Never Substance use type: does not use Adopted: Yes Caregiver/Support person: Yes Household members: significant other, children and other Details: dann Abdi and daughter Flower live with her parents. Housing: house Number of Children: 1 Communication Needs: None Do you need help understanding health information?: Never Sexually active: Yes What is your relationship status?: living with partner Panel score (0-1 are the most socially isolated patients): 1 Do you feel safe at home: Yes Do you feel safe in your relationship?: Yes Additional Social history: Patient does not work. Jin works at [employer]. History History 2 Para 1 Hx # Term Pregnancies 1 Multiple births 0 Hx # Pregnancies 0 Ectopic pregnancies 0 AB induced 0 Hx Number of Living Children 1 AB spontaneous 0 Past Pregnancies Del. Date GA/Weeks # Outcome Route Wgt Sex Labor Lgth Anesthesia Location Prov Complic 12/14/19 38 No Successful vaginal 6 lb 4 oz Female 4hrs 21 min VIRGIL Lynn other Delivery Date: 12/14/19 Last Updated by: Molly Bliss CNM IOL FOR oligohydramnios. Periurethral, labial, and left sulcus lacs, repair in OR for cervical tear by MD. Crenshaw. EBL intraoperatively was 400 cc. DS: Data Vitals/I&O Vitals and I&O: Vital Signs Temperature 98.1 F 09/18/21 19:25 Pulse 75 09/18/21 19:25 Pulse Rhythm Regular 09/18/21 19:25 Respiratory Rate 18 09/18/21 19:25 Blood Pressure 137/88 09/18/21 19:25 Blood Pressure Mean 104 09/18/21 19:25 Pulse Oximetry 99 09/18/21 19:25 Pain Level 10 09/17/21 23:48 Comment 09/18/21 09:21 Intake & Output 09/18/21 09/18/21 09/19/21 11:59 23:59 11:59 Intake Total 971.667 / 2031.667 1060 / 2031.667 Output Total 1350 / 2550 1200 / 2550 Balance -378.333 / -518.333 -140 / -518.333 Intake: IV 371.667 / 1031.667 660 / 1031.667 Oral 600 / 1000 400 / 1000 Output: Urine 750 / 1950 1200 / 1950 Blood 600 / 600 Other: Urine Color [place] Data Completed and Pending Labs on day of discharge: Labs from last 24 hours 09/19/21 07:35 WBC 12.21 H RBC 4.03 Hgb 12.5 Hct 38.4 MCV 95.3 H MCH 31.0 MCHC 32.6 RDW 13.2 Plt Count 226 MPV 11.2 H
[2021-09-19 08:40] VITALS: BP 126/82; PULSE 74; RESP 16; TEMP 37; O2SAT 97
[2021-09-19 16:23] VITALS: BP 128/58; PULSE 80
== END 2021-09-19 11:50 | disposition home or self-care (01) | DRG 807 ==
PROVIDERS: Admitting Provider Advanced Practice Midwife; PCP Nurse Practitioner; Visit Provider Advanced Practice Midwife
DX: O99.344 Other mental disorders complicating childbirth (principal); Z37.0 Single live birth; F41.8 Other specified anxiety disorders; O69.81X0 Labor and delivery complicated by cord around neck, without compression, not applicable or unspecified; Z3A.40 40 weeks gestation of pregnancy; O75.89 Other specified complications of labor and delivery
CPT/HCPCS: 36415; 85027; 86850; 86900; 86901; 87635; J0690; J2590

== ENCOUNTER 2021-11-16 04:49 | Outpatient (CLI) | payer MEDICAID, SELFPAY | END 2021-11-16 04:50 | disposition home or self-care (01) | LOC: LBO 04:49 | PROVIDERS: PCP Nurse Practitioner; Visit Provider Obstetrics & Gynecology ==

== ENCOUNTER 2021-11-16 05:26 | Outpatient (CLI) | payer OTHER, MEDICAID, SELFPAY ==
[2021-11-16 09:12] LABS: HCT 41.8 % (36.0-46.0); HGB 13.7 g/dL (11.2-15.7); MCH 30.4 pg (27.0-33.0); MCHC 32.8 % (32.0-36.0); MCV 92.7 fL (80-95); MPV 10.6 fL (8.0-11.0); Platelet Count 305 10^3/uL (130-400); RBC 4.51 10^6/uL (3.93-5.22); RDW 11.5 % (11.7-14.6); RDW-SD 38.6 fL; WBC 6.78 10^3/uL (4.4-10.8)
== END 2021-11-16 05:27 | disposition home or self-care (01) ==
LOC: LBO 05:26
PROVIDERS: PCP Nurse Practitioner; Visit Provider Obstetrics & Gynecology
DX: Z30.09 Encounter for other general counseling and advice on contraception (principal); Z01.818 Encounter for other preprocedural examination; Z01.812 Encounter for preprocedural laboratory examination
CPT/HCPCS: 36415; 85027; 86850; 86900; 86901

== ENCOUNTER 2021-11-17 03:58 | Outpatient (CLI) | payer OTHER, MEDICAID, SELFPAY ==
[2021-11-17 12:34] LABS: Source Nasal/Nares
[2021-11-17 15:25] LABS: COVID-19 PCR Negative (Negative)
== END 2021-11-17 03:59 | disposition home or self-care (01) ==
LOC: LBO 04:00
PROVIDERS: PCP Nurse Practitioner; Visit Provider Obstetrics & Gynecology
DX: Z20.822 Contact with and (suspected) exposure to COVID-19 (principal); Z01.818 Encounter for other preprocedural examination
CPT/HCPCS: 87635

== ENCOUNTER 2021-11-18 07:13 | Day surgery (SDC) | payer OTHER, MEDICAID, SELFPAY ==
[2021-11-18] VITALS (10 sets, daily range): BP systolic 98–117; BP diastolic 30–87; PULSE 55–86; RESP 12–24; TEMP 36–36.6; O2SAT 97–100; BMI 25.8
[2021-11-18] MEDS: Lactated Ringers 1,000 ML 125 ML IV ×2 (07:50→11:25)
--- NOTE | 2021-11-18 08:04 | ANES.PREOP_ITS ---
General Info Date of Service Date Performed: 11/18/21 Height: 5 ft 2 in Weight: 64 kg Body Mass Index (BMI): 25.8 Surgical Procedure: Operation Date: 11/18/21 10:10 Proposed Procedure Side Surgeon p Tubal Ligation Laparoscopic Bilateral Chandni Leija MD Meds Allergies and Home Medications Allergies Allergy/AdvReac Type Severity Reaction Status Date / Time mushroom Allergy Severe Throat Verified 11/18/21 07:27 swelling Home Medication Medication Instructions Recorded prenat.vits,junior,[id number] 1 tab PO DAILY 03/02/21 Current Visit Medications: Current Medications Generic Name Dose Route Start Last Admin Trade Name Freq PRN Reason Stop Dose Admin Ringer's Solution 1,000 mls @ 125 mls/hr 11/18/21 06:00 11/18/21 07:50 IV 12/17/21 23:59 125 mls/hr INFUSION CHEVY Administration IV Miscellaneous Supplies 1 each 11/18/21 06:00 Iv Access IV 12/17/21 23:59 DIRECTED CHEVY Sodium Chloride 0 ml 11/18/21 06:00 Normal Saline Flush 10 Ml Syr IV 12/17/21 23:59 PRN PRN Sodium Chloride 0 ml 11/18/21 06:00 Normal Saline 10 Ml Vial IJ 12/17/21 23:59 DIRECTED PRN Sterile Water 0 ml 11/18/21 06:00 Water,Injection,Sterile 10 Ml Vial IJ 12/17/21 23:59 DIRECTED PRN PFSH Active Problems Active Problems: Problem Status Onset Code Depression F32.9 Anxiety F41.9 Medical History Medical History Adopted unknown family medical history History of urinary infection Sterilization consult Syncope Surgical History Surgical History (Updated 11/18/21 @ 07:27 by Ariadne Wu RN) H/O: knee surgery right knee Tobacco Smoking/Tobacco Use Status: Current every day Tobacco Type: e-cigarettes Second hand exposure: No Alcohol Alcohol Intake: never Substance Use Substance use: Never Substance use type: does not use Prental History History 2 Para 1 Hx # Term Pregnancies 1 Multiple births 0 Hx # Pregnancies 0 Ectopic pregnancies 0 AB induced 0 Hx Number of Living Children 1 AB spontaneous 0 Past Pregnancies Del. Date GA/Weeks # Outcome Route Wgt Sex Labor Lgth Anesthes ia Location Prov Complic 05/23/20 38 No Successful vaginal 2834.952 g Female 4hrs 21 min [facility] other 09/18/21 40 No Successful vaginal 3034.816 g Male 3 hrs 37 min earlene onal [facility] Delivery Date: 12/14/19 Last Updated by: Molly Bliss CNM IOL FOR oligohydramnios. Periurethral, labial, and left sulcus lacs, repair in OR for cervical tear by MD. Crenshaw. EBL intraoperatively was 400 cc. Delivery Date: 09/18/21 Last Updated by: VIOLET Bowers; nuchal cord, loose, reduced over head; left nuchal hand, arm delivered prior to shoulder, nuchal cord then reduced Vital Signs and Lab Results Vital Signs Most Recent Vital Signs in EMR: Most Recent Vital Signs Temp Pulse Resp BP Pulse Ox 36.6 C 86 17 117/87 98 11/18/21 07:30 11/18/21 07:30 11/18/21 07:30 11/18/21 07:30 11/18/21 07:30 Point of Care Results Point of Care Results: POC- Test(urine) Negative 11/18/21 07:41 Lab Results Blood Type / Crossmatch: Patient ABO/Rh AB Positive 11/18/21 Antibody Screen NEGATIVE 11/18/21 Complete Blood Count: White Blood Count 6.78 10^3/uL (4.4-10.8) 11/16/21 09:00 11/16/21 Red Blood Count 4.51 10^6/uL (3.93-5.22) 11/16/21 09:00 11/16/21 Hemoglobin 13.7 g/dL (11.2-15.7) 11/16/21 09:00 11/16/21 Hematocrit 41.8 % (36.0-46.0) 11/16/21 09:00 11/16/21 Platelet Count 305 10^3/uL (130-400) 11/16/21 09:00 11/16/21 Complete Metabolic Panel: No Data to Display Liver Function Panel: 2 No Data to Display Coagulation Panel: No Data to Display Cardiac Panel: No Data to Display Arterial Blood Gas: No Data to Display Venous Blood Gas: No Data to Display Pancreas Panel: No Data to Display Thyroid Panel: No Data to Display Infectious Disease: Coronavirus (COVID-19)(PCR) Negative (Negative) 11/17/21 08:55 11/17/21 Coronavirus 2019 Source Nasal/Nares 11/17/21 08:55 11/17/21 Blood Cultures: No Data to Display Toxicology Panel: No Data to Display Panel: No Data to Display Anesthesia Assessment and Plan Anesthesia History Personal History: No History of Anesthesia Complications Family History: No Family History of Anesthesia Complications Exercise Tolerance Exercise Tolerance: Metabolic Equivalents>4 Pertinent Negatives Pertinent Negatives: No Symptoms of GERD, No Major Cardiovascular Symptoms or Complaints, No Major Pulmonary Symptoms or Complaints and Other (Seizure during recent . ) Cardiac & Pulmonary Exam Cardiac Exam: Normal S1/S2 Heart Sounds Pulmonary Exam: Clear Bilateral Breath Sounds and No cough or Cold Implantable Cardiac Device Does patient have a Pacemaker or an ICD?: No Airway Exam Known Difficult Airway: No Mallampati Class: 1 Mouth Opening: Normal (> 3cm) Thyromental Distance: Greater than 3 cm Neck Range of Motion: Full ROM Neck Circumference: Normal Teeth Condition: Normal Dentition ASA Classification ASA Score: ASA 2 Emergency Case?: No NPO Status NPO Status: NPO Clears >2 hours, Solids >8 hours Status Status: Negative HCG Anesthesia Plan Resuscitation Status: Full Code Anesthesia Technique: General Anesthesia Airway Planned: Endotracheal Tube Monitors Used: Standard Monitors
--- NOTE | 2021-11-18 10:05 | FALL_PTH ---
PATIENT: Hoa Cox LOC: [facility] U#:[id number] AGE/SX: 26/F ROOM: RE11/18/[address]: Chandni Leija MD : 1995 BED: DIS: 11/18/2021 SPEC #: [id number] RECD: 11/18/21 12:51 STATUS: KAMI RESamuel #: [id number] JASPER: 11/18/21 10:[address]: Chandni Leija DEPT: Surgical Specimen RECD BY: Aixa Martin ENTERED: 11/18/21 12:52 SP TYPE: Fall OTHR DR: Angela Jhaveri Tissues: 1 - FALLOPIAN TUBE (STERILIZATION) Procedures: GROSS AND MICRO LEVEL 2 Comments: [id number]
[2021-11-18] MEDS: Bupivacaine 0.25% Pres-Free 30 ML VIAL (10:14)
--- NOTE | 2021-11-18 10:41 | ROE_ITS ---
Date of service: 11/18/21 Time of Service: 09:40 Operative Note Operative Note DATE OF PROCEDURE: 11/18/21 PRE-OP DIAGNOSIS: desires permanent sterilization PROCEDURE: Laparoscopic bilateral tubal ligation SURGEON: Chandni Leija ASSISTING SURGEON: Aleah Figueroa ANESTHESIA TYPE: General LMA/ETT Refer to Anesthesia Record ESTIMATED BLOOD LOSS: 100 COMPLICATIONS: None Patient was transported to: PACU Patient's condition: stable Indications: desires permanent sterilization Findings: Normal appearing external genitalia, vagina and cervix (laceration well healed). Normal appearing uterus, ovaries and tubes. No obvious abnormalities of the lower abdomen and pelvis. Procedure Description: After informed consent was signed the patient was taken to the operating room and given general anesthesia.? SCDs were placed on her legs.? She was prepped and draped in the dorsal lithotomy position in the [facility].? Her bladder was drained of urine via a straight catheter. A speculum was placed into the vagina to expose the cervix and a hulka manipulator was placed into the cervix. The speculum was removed. Gloves were changed and attention was turned to the abdomen. The infraumbilical fold was grasped and injected with 0.25% marcaine. A 12mm incision was made in the infraumbilical fold with the scalpel. A hemostat was used to bluntly dissect the subcuticular layers. The visiport was then assembled and used to attempt to enter the abdomen under direct visualization. However the trocar was not quite long enough to penetrate the last layer of peritoneum so open dissection was used to enter the peritoneum. Once entrance to the abdominal cavity was confirmed the CO2 was turned on and the abdomen was insufflated. Two lateral 5mm ports were then placed under direct visualization. The left tube was identified and followed to the fimbriated end. The tube was grasped and elevated and the mesosalpinx was clamped, cauterized and cut with the ligasure device. The was continued along the length of the tube. The proximal end of the tube was then transected with the ligasure. Good hemostasis was noted. The right tube was then identified and followed to the fimbriated end. The tube was grasped and elevated and the mesosalpinx was clamped, cauterized and cut with the ligasure device. The was continued along the length of the tube. The proximal end of the tube was then transected with the ligasure. There was some bleeding at the proximal end of the tube along the uterus. This was stopped with cautery with the ligasure device. Good hemostasis was noted even with decrease abdominal pressure. The ports were removed. The gas was released from the abdomen. The fascia of the umbilical incision was identified and closed with a [id number] suture of 0 vicryl. The skin incisions were then closed with 4-0 vicryl. Mastisol and steristrips were placed. The manipulator was removed. The patient was placed back into the supine position.? She was moved to the stretcher and taken to the recovery room in stable condition.
[2021-11-18] MEDS: fentaNYL 100 MCG/2 ML VIAL IVP ×4 (11:00→11:40)
[2021-11-18] MEDS: HYDROmorphone 2 MG/ML VIAL IVP (11:35)
[2021-11-18] MEDS: Normal Saline 10 ML VIAL IJ (11:38)
--- NOTE | 2021-11-18 14:11 | W.ANESPOSTOP ---
Postoperative Evaluation Date, Time and Location Date Performed: 11/18/21 Time Performed: 14:11 Patient Location: Day Surgery Unit Vital Signs Most Recent Imported Vital Signs: Most Recent Vital Signs Temp Pulse Resp BP Pulse Ox 36.6 C 59 L 17 102/66 100 11/18/21 12:44 11/18/21 12:44 11/18/21 12:44 11/18/21 12:44 11/18/21 12:44 Pain Score Most Recent Pain Score: Most Recent Pain Score Pain Level 0 11/18/21 12:44 Assessment Mental Status: Awake (Alert & Oriented to Patient Baseline) Airway and Respiratory Function: Patent airway with normal (patient baseline) respiratory exam Cardiovascular Function: Hemodynamically Stable Hydration Status: Adequately Hydrated Nausea & Vomiting: No Nausea or Vomiting Pain: Pain is tolerable per patient Peripheral Nerve Block: Patient did not receive a nerve block Postoperative Comments:: Patient was discharged prior to a final discussion about postoperative pain, but otherwise reported doing well per RN.
== END 2021-11-18 13:57 | disposition home or self-care (01) ==
PROVIDERS: PCP Nurse Practitioner; Visit Provider Obstetrics & Gynecology
PROC: (CPT 58670; principal; 2021-11-18 10:00)
DX: Z30.2 Encounter for sterilization (principal)
CPT/HCPCS: 58661; 36415; 81025; 86850; 86900; 86901; 88302; J1100; J1885; J2001; J2250; J2405; J2704; J3010

== ENCOUNTER 2022-05-10 11:03 | Outpatient (REF) | payer OTHER, MEDICAID, SELFPAY ==
--- NOTE | 2022-05-10 10:35 | PAPFT_PTH ---
PATIENT: Hoa Cox LOC: [facility] U#:[id number] AGE/SX: 27/F ROOM: RE05/10/[address]: Chandni Leija MD : 1995 BED: DIS: 05/10/2022 SPEC #: [id number] RECD: 05/10/22 12:57 STATUS: KAMI REQ #: [id number] JASPER: 05/10/22 10:[address]: Chandni Leija DEPT: [facility] Cytology RECD BY: Aixa Martin ENTERED: 05/10/22 12:58 SP TYPE: PAPFT OTHR DR: IMELDA SIMON NP Tissues: 1 - CX/ENDOCX FOR PAP SMEARS Procedures: PAP THIN PREP/[facility] Screening Comments: [id number] (CHLAMYDIA/GC)
[2022-05-11 15:40] LABS: Chlamydia Result Negative (Negative); GC Result Negative (Negative)
== END 2022-05-10 11:04 | disposition home or self-care (01) ==
LOC: LBN 11:03
PROVIDERS: PCP Nurse Practitioner Family; Visit Provider Obstetrics & Gynecology
DX: Z11.3 Encounter for screening for infections with a predominantly sexual mode of transmission (principal); Z12.4 Encounter for screening for malignant neoplasm of cervix
CPT/HCPCS: 87491; 87591; 88142

== ENCOUNTER 2023-05-22 13:25 | Outpatient (REF) | payer MEDICAID, SELFPAY ==
--- OUTSIDE RECORDS SUMMARY | 2023-05-22 13:31 | XMS_ITS | Patient Health Record ---
Author Name Unknown Organization [facility] Address [address] [place] [address] Care Team Providers Care Enrichment Specialist Name Role Phone Ivanna, Provider Unavailable Unavailab le REASON FOR REFERRAL No Information MEDICATIONS Medication SIG (Take, Route, Frequency, Duration) Notes Start Date End Date Status Cyclobenzaprine HCl 10 MG 1 tab(s) orall y 3 times a day for 5 days 09/19/2018 Active Concerta 36 MG 1 tab(s) orally once a day (in the morning) Not-Taking Nexplanon 68 MG 1 ea subcutaneously once for 1 dose(s) Active lamoTRIgine 200 MG 1 tab(s) orally 1 ti mes a day Not-Taking Sertraline HCl 100 MG 1 tab(s) orally on ce a day Not-Taking guanFACINE HCl 1 MG 3 tab(s) orally once a day (at bedtime) Not-Taking QUEtiapine Fumarate 25 MG 1 tab(s) orall y 1 times a day Not-Taking IMMUNIZATIONS Vaccine Route Administration Date Status Comme nts #Flucelvax (Multidose) Private 19 Yrs and over IM Intramuscular 08/02/2018 Administered SOCIAL HISTORY Tobacco Use: Social History Observation Description Date Details (start date - stop date) Never Smoker NA - NA Sex Assigned At : Social History Observation Description Sex Assigned At Unknown Tobacco Use: Question Answer Notes Are you a: never smoker Additional Findings: Tobacco Non-User Current no n-smoker PROBLEMS No Known Problems Encounters Encounter Location Date Provider Diagnosis [facility] [address] [place] [address] 11/12/2022 Provider Ivanna Neck muscle spasm M62.838 ASSESSMENTS Encounter Date Diagnosis Assessment Notes Treatment Notes Treatment Clinical Notes 11/12/2022 Neck muscle spasm (ICD-10 - M62.838) PLAN OF TREATMENT No Information Insurance Providers Payer Name Payer Address Payer Phone Subscriber Number Group Number Insured Name Patient Relationship to Insured Coverage Start Date Coverage End Date [facility] [id number] [place] [id number] [facility] Hoa Cox Self - patient is the insured
[2023-05-23 15:23] LABS: Chlamydia Result Negative (Negative); GC Result Negative (Negative)
== END 2023-05-22 13:26 | disposition home or self-care (01) ==
LOC: LBN 13:25
PROVIDERS: PCP Nurse Practitioner Family; Visit Provider Advanced Practice Midwife
DX: N89.8 Other specified noninflammatory disorders of vagina (principal); Z11.3 Encounter for screening for infections with a predominantly sexual mode of transmission
CPT/HCPCS: 87491; 87591; 87480; 87510; 87660

== ENCOUNTER 2023-09-28 21:04 | Outpatient (REF) | payer MEDICAID, SELFPAY ==
[2023-09-28 21:04] LABS: Bacteria Moderate HPF (Negative); C & S Indicated? C&S Done As Ordered; Casts Negative LPF (Negative); Crystals Negative HPF (Negative); Epithelial Cells Few HPF (Negative); Mucus Negative (Negative); WBC >50 HPF (0-5)
[2023-09-30 12:38] LABS: Chlamydia Result Negative (Negative); GC Result Negative (Negative)
== END 2023-09-28 21:05 | disposition home or self-care (01) ==
LOC: LBN 21:04
PROVIDERS: PCP Nurse Practitioner Family; Visit Provider Physician Assistant Medical
DX: N89.8 Other specified noninflammatory disorders of vagina (principal); R30.0 Dysuria; R82.998 Other abnormal findings in urine
CPT/HCPCS: 87491; 87591; 81015; 87086; 87480; 87510; 87660

== ENCOUNTER 2023-12-15 07:59 | Outpatient (REF) | payer MEDICAID, SELFPAY | END 2023-12-15 08:00 | disposition home or self-care (01) | LOC: LBN 07:59 | PROVIDERS: PCP Nurse Practitioner Family; Visit Provider Physician Assistant Medical | DX: R30.0 Dysuria (principal); B96.89 Other specified bacterial agents as the cause of diseases classified elsewhere | CPT/HCPCS: 87086 ==

== ENCOUNTER 2024-04-29 15:32 | Outpatient (REF) | payer MEDICAID, SELFPAY | END 2024-04-29 15:33 | disposition home or self-care (01) | LOC: LBN 15:32 | PROVIDERS: PCP Nurse Practitioner Family; Visit Provider Nurse Practitioner Family | DX: N30.01 Acute cystitis with hematuria (principal) | CPT/HCPCS: 87077; 87086; 87186 ==

== ENCOUNTER 2024-05-06 19:24 | Outpatient (REF) | payer MEDICAID, SELFPAY ==
[2024-05-06 16:58] LABS: HCT 46.3 % (36.0-46.0); HGB 14.7 g/dL (11.2-15.7); MCH 29.9 pg (27.0-33.0); MCHC 31.7 % (32.0-36.0); MCV 94 fL (80-95); MPV 11.2 fL (8.0-11.0); Platelet Count 312 10^3/uL (130-400); RBC 4.92 10^6/uL (3.93-5.22); RDW 12.4 % (11.7-14.6); RDW-SD 42.5 fL; WBC 7.16 10^3/uL (4.4-10.8)
[2024-05-06 17:49] LABS: ALT 16 U/L (14-59); AST 13 U/L (15-37); Albumin 3.9 g/dL (3.4-5.0); Alkaline Phosphatase 90 U/L (46-116); Anion Gap 9.2 mmol/L (3-11); BUN 6 mg/dL (7-18); Bilirubin, Total 0.42 mg/dL (0.2-1.0); CO2 27.8 mmol/L (21.0-32.0); CREATININE 0.8 mg/dL (0.55-1.02); Calcium 9.1 mg/dL (8.5-10.1); Chloride 106 mmol/L (98-107); Glucose 83 mg/dL (74-106); Sodium 143 mmol/L (136-145); TSH (W/Ref FT4) 2.95 uIU/mL (0.36-3.74); Total Protein 7.9 g/dL (6.4-8.2); Vitamin B12 564 pg/mL (193-986)
== END 2024-05-06 19:25 | disposition home or self-care (01) ==
LOC: NCHCN 19:24
PROVIDERS: PCP Nurse Practitioner Family; Visit Provider Nurse Practitioner Family
DX: N30.01 Acute cystitis with hematuria (principal)
CPT/HCPCS: 80053; 85027; 82607; 84443

== ENCOUNTER 2024-05-17 18:58 | Outpatient (REF) | payer MEDICAID, SELFPAY ==
[2024-05-20 12:33] LABS: Chlamydia Result Negative (Negative); GC Result Negative (Negative)
== END 2024-05-17 18:59 | disposition home or self-care (01) ==
LOC: LBN 18:58
PROVIDERS: PCP Nurse Practitioner Family; Visit Provider Obstetrics & Gynecology
DX: N89.8 Other specified noninflammatory disorders of vagina (principal); N94.6 Dysmenorrhea, unspecified; Z97.5 Presence of (intrauterine) contraceptive device
CPT/HCPCS: 87491; 87591; 87480; 87510; 87660

== ENCOUNTER 2024-06-01 16:53 | Outpatient (REF) | payer MEDICAID, SELFPAY | END 2024-06-01 16:54 | disposition home or self-care (01) | LOC: LBN 16:53 | PROVIDERS: PCP Nurse Practitioner Family; Visit Provider Physician Assistant Medical | DX: J02.9 Acute pharyngitis, unspecified (principal) | CPT/HCPCS: 87070 ==

== ENCOUNTER 2024-06-12 14:49 | Outpatient (REF) | payer MEDICAID, SELFPAY ==
[2024-06-13 10:57] LABS: Chlamydia Result Negative (Negative); GC Result Negative (Negative)
== END 2024-06-12 14:50 | disposition home or self-care (01) ==
LOC: LBN 14:49
PROVIDERS: PCP Nurse Practitioner Family; Visit Provider Nurse Practitioner Women's Health
DX: Z11.3 Encounter for screening for infections with a predominantly sexual mode of transmission (principal); Z23 Encounter for immunization; Z01.419 Encounter for gynecological examination (general) (routine) without abnormal findings; Z97.5 Presence of (intrauterine) contraceptive device
CPT/HCPCS: 87491; 87591

== ENCOUNTER 2025-02-20 19:15 | Outpatient (REF) | payer MEDICAID, SELFPAY ==
[2025-02-21 11:21] LABS: HSV 1 DNA Result Negative (Negative); HSV 2 DNA Result Negative (Negative); Varicella Zoster DNA Result Positive (Negative)
== END 2025-02-20 19:16 | disposition home or self-care (01) ==
LOC: LBN 19:15
PROVIDERS: PCP Nurse Practitioner Family; Visit Provider Nurse Practitioner Family
DX: R21 Rash and other nonspecific skin eruption (principal)
CPT/HCPCS: 87529; 87798

== ENCOUNTER 2025-06-16 13:37 | Outpatient (REF) | payer MEDICAID, SELFPAY ==
--- NOTE | 2025-06-16 13:15 | PAPFT_PTH ---
PATIENT: Hoa Cox LOC: [facility] U#:[id number] AGE/SX: 30/F ROOM: RE06/16/[address]: Nasra Rodriguez NP : 1995 BED: DIS: 06/16/2025 SPEC #: [id number] RECD: 06/16/25 18:07 STATUS: KAMI FUNK #: [id number] JASPER: 06/16/25 13:[address]: Nasra Rodriguez NP DEPT: [facility] Cytology RECD BY: Aixa Martin ENTERED: 06/16/25 18:07 SP TYPE: PAPFT OTHR DR: IMELDA SIMON NP Tissues: 1 - CX/ENDOCX FOR PAP SMEARS Procedures: PAP THIN PREP/[facility] Screening Comments: (CHLAMYDIA/GC)
[2025-06-17 12:48] LABS: Chlamydia Result Negative (Negative); GC Result Negative (Negative)
== END 2025-06-16 13:38 | disposition home or self-care (01) ==
LOC: LBN 13:37
PROVIDERS: PCP Nurse Practitioner Family; Visit Provider Nurse Practitioner Women's Health
DX: N89.8 Other specified noninflammatory disorders of vagina (principal); Z12.4 Encounter for screening for malignant neoplasm of cervix
CPT/HCPCS: 87491; 87591; 88142; 87480; 87510; 87660

== ENCOUNTER 2025-06-16 13:45 | Outpatient (CLI) | payer MEDICAID, SELFPAY ==
[2025-06-16 23:42] LABS: Hepatitis C Ab w Rflx HCV PCR Negative (Negative)
[2025-06-16 23:54] LABS: HIV-1/2 Ag & Ab Screen Negative (Negative)
[2025-06-20 16:54] LABS: Syphilis IgG w/Reflex Nonreactive (Nonreactive)
== END 2025-06-16 13:46 | disposition home or self-care (01) ==
LOC: LBO 13:46
PROVIDERS: PCP Nurse Practitioner Family; Visit Provider Nurse Practitioner Women's Health
DX: Z11.3 Encounter for screening for infections with a predominantly sexual mode of transmission (principal)
CPT/HCPCS: 36415; 86803; 87389; 86780